=== PATIENT | female | born 2000 | race Caucasian/White ===

== ENCOUNTER 2020-05-19 12:57 | Inpatient (IN) ==
--- NOTE | 2020-05-19 13:35 | Emergency Department Note ---
History of Present Illness General Chief complaint: Mental Health Evaluation Stated complaint: MHID Time Seen by Provider: 05/19/20 13:08 Source: patient History of Present Illness Provider complaint: Overdose Onset (ago): hour(s) Location: abdomen Pain Consistency: + now resolved Maximum Pain Intensity: 6 Quality: + other (Took a handful of Zoloft) Exacerbated By: + other (Stress and chronic pain) Associated symptoms: + chest pain, + cough, + malaise and + nausea/vomiting; no fever/chills, no headaches and no shortness of breath This is a 19-year-old female brought in by EMS for evaluation for overdose. The patient states that she took a handful of her Zoloft 50 mg at 11 AM today. The patient states that she was very sad and tired of living with her chronic fibromyalgia pain. She states she sees a air brush operator and he states that it is just stress and anxiety. She was recently diagnosed with COVID-19 5 days ago and has developed chest pain over the past 2 days. She was seen here for chest pain 2 days ago and sent home and after evaluation. She describes the pain as a aching sharp pain on the left side of her chest. It is worse with cough. She denies feeling short of breath. She states that she is not suicidal at this point but she does not know what to do with her chronic fibromyalgia pain. She is on control pills. She denies any leg swelling or pain. She has had no abdominal pain or diarrhea but she did have some vomiting which is improved. She does have a mild cough and some sniffles which she had prior to being diagnosed with Covid 5 days ago. She denies alcohol or drug use. She does state that she has been in psychiatric facilities in the past. Her last admission was 3 years ago. She states she does not want to go to a psychiatric facility and wants to stay here. Home Medications Medication Instructions Recorded Confirmed Type benzonatate 200 mg PO Q6H PRN #20 cap 05/17/20 05/19/20 Rx ondansetron 4 mg PO Q6H PRN #20 tab 05/17/20 05/19/20 Rx dextroamphetamine-amphetamine 5 mg PO QAM 05/19/20 05/19/20 History [Adderall] norethindrone-e.estradiol-iron 1 tab PO QAM 05/19/20 05/19/20 History [June[birth year] ([birth year])] sertraline [Zoloft] 50 mg PO ONCE 05/19/20 05/19/20 History Allergies Allergy/AdvReac Type Severity Reaction Status Date / Time escitalopram [From Lexapro] AdvReac Unknown "Turn Pale Unverified 05/19/20 16:31 Green, Can't Concentrate, Can't Remember." Past Med/Surg History Medical History Fibromyalgia Insomnia Surgical History No history of previous surgery Social History Smoking Status: Never smoker Preferred Language: Palestinian current occupational status: student Feels Safe at Home: Yes Review of Systems See HPI for pertinent positives & negatives. and A total of 10 systems reviewed and were otherwise negative Physical Exam Vital Signs Vital Signs - 24 hr 05/19/20 13:23 05/19/20 15:00 05/19/20 15:01 Temperature 36.6 C Temperature Source Oral Pulse Rate 77 71 77 Pulse Rate from SpO2 Sensor 74 77 Respiratory Rate 17 18 16 Blood Pressure 123/69 127/81 Blood Pressure Mean 87 96 Pulse Oximetry 99 100 100 Oxygen Delivery Method Room Air Room Air Room Air Sepsis Recent Fever Within 48 Hours No Sepsis New/Unexplained Change in Mental Status N/A Sepsis Action Taken by Nursing No Action Required 05/19/20 15:30 05/19/20 15:31 05/19/20 16:00 Temperature Temperature Source Pulse Rate 71 71 72 Pulse Rate from SpO2 Sensor 71 72 72 Respiratory Rate 18 15 20 Blood Pressure 118/74 129/85 Blood Pressure Mean 88 99 Pulse Oximetry 98 100 100 Oxygen Delivery Method Room Air Room Air Room Air Sepsis Recent Fever Within 48 Hours Sepsis New/Unexplained Change in Mental Status Sepsis Action Taken by Nursing 05/19/20 16:01 05/19/20 16:30 05/19/20 16:31 Temperature Temperature Source Pulse Rate 75 89 86 Pulse Rate from SpO2 Sensor 76 92 H 85 Respiratory Rate 19 20 21 Blood Pressure 127/82 Blood Pressure Mean 97 Pulse Oximetry 100 99 99 Oxygen Delivery Method Room Air Room Air Room Air Sepsis Recent Fever Within 48 Hours Sepsis New/Unexplained Change in Mental Status Sepsis Action Taken by Nursing Constitutional: Vital signs reviewed. Eyes: Pupils are equal round reactive to light. Conjunctiva are noninjected. ENT: Pharynx is clear without erythema or exudate. Mucous membranes are moist. Neck supple without meningeal signs. Respiratory: Clear to auscultation bilaterally. Breath sounds are equal bilaterally. Cardiovascular: Regular rate and rhythm. No rubs or gallops. GI: Soft, nondistended and nontender. Bowel sounds are present. Musculoskeletal: No peripheral edema. No lower extremity tenderness. Integumentary: No cyanosis. or jaundice. Neurological: The patient is awake and alert. No focal deficits. Psychiatric: Depressed affect. Tearful and anxious. Course Administered Medications Discontinued Medications Acetaminophen (Acetaminophen 325 Mg Tab) 650 mg PO NOW STA Stop: 05/19/20 15:34 Last Admin: 05/19/20 16:02 Dose: 650 mg Documented by: [id number] Ondansetron HCl (Ondansetron Inj 2 Mg/Ml 2 Ml Vial) 4 mg IV NOW STA Stop: 05/19/20 15:51 Last Admin: 05/19/20 16:02 Dose: 4 mg Documented by: [id number] Medical Decision Making Differential Diagnosis Suicide attempt, drug overdose, mood disorder, pneumonia, COVID-19 Medical Records Attestation: I reviewed the patient's medical records. I did perform a limited focused review of portions of the patient's old chart on the electronic medical record. The patient was seen here 2 days ago for chest pain. She had a work-up including a positive D-dimer which led to a CT angiogram of the chest which showed no evidence of pulmonary embolism. Home Medications Current Medication List: was personally reviewed by me Laboratory Data Attestation: I reviewed the patient's lab results. Result diagrams: 05/19/20 13:10 05/19/20 13:10 Lab Results 05/19/20 05/19/20 05/19/20 Range/Units 13:10 13:10 13:10 WBC 5.51 (4.8-10.8) K/uL RBC 4.75 (4.2-5.4) M/uL Hgb 14.3 (12.0-16.0) g/dL Hct 41.6 (37-47) % MCV 87.6 (80-100) fL MCH 30.1 (25-34) pg MCHC 34.4 (32-36) g/dL RDW Std Deviation 41.9 (36.4-46.3) fL RDW Coeff of Charli 13.1 (11.5-14.5) % Plt Count 212 (130-400) K/uL MPV 10.5 H (7.4-10.4) fL Immature Gran % (Auto) 0.2 % Neut % (Auto) 65.3 % Lymph % (Auto) 28.9 % [place] % (Auto) 4.7 % Eos % (Auto) 0.7 % Baso % (Auto) 0.2 % Neut # (Auto) 3.60 (1.4-6.5) K/uL Lymph # (Auto) 1.59 (1.2-3.4) K/uL [place] # (Auto) 0.26 (0.11-0.59) K/uL Eos # (Auto) 0.04 (0-0.5) K/uL Baso # (Auto) 0.01 (0-0.2) K/uL Immature Gran # (Auto) 0.01 (0.00-0.02) K/uL Sodium 143 (136-145) mmol/L Potassium 3.5 (3.5-5.1) mmol/L Chloride 111 H (98-107) mmol/L Carbon Dioxide 25 (21-32) mmol/L Anion Gap 7.0 (3-11) BUN 7 (7-18) mg/dl Creatinine 0.83 (0.6-1.2) mg/dl Est Cr Clr Drug Dosing 84.8 ml/min Est GFR ( Amer) 117.7 Est GFR (Non-Af Amer) 101.5 BUN/Creatinine Ratio 8.8 L (10-20) Glucose 78 (70-99) mg/dl Calcium 9.0 (8.5-10.1) mg/dl Total Bilirubin 0.7 (0.2-1) mg/dl AST 19 (15-37) U/L ALT 22 (12-78) U/L Alkaline Phosphatase 69 (45-117) U/L Troponin I < 0.015 (0-0.045) ng/ml C-Reactive Protein < 0.29 (0-0.29) mg/dl Total Protein 7.8 (6.4-8.2) gm/dl Albumin 4.1 (3.4-5.0) gm/dl Globulin 3.7 (2.5-4.0) gm/dl Albumin/Globulin Ratio 1.1 (0.9-2) TSH 1.340 (0.300-4.500) uIu/ml Urine Color Urine Appearance (Clear) Urine pH (4.5-7.5) Ur Specific [place] (1.000-1.030) Urine Protein (Negative) Urine Glucose (UA) (Negative) Urine Ketones (Negative) Urine Blood (Negative) Urine Nitrite (Negative) Urine Bilirubin (Negative) Urine Urobilinogen (Negative) Ur Leukocyte Esterase (Negative) Urine WBC (Auto) (0-5) /hpf Urine RBC (Auto) (0-4) /hpf U Hyaline Cast (Auto) (0-5) /lpf U Epithel Cells (Auto) (0-5) /lpf Urine Bacteria (Auto) (Negative) Salicylates < 1.7 L (2.8-20) mg/dl Urine Opiates Screen (Neg) Ur Methadone, Qual (Neg) Acetaminophen < 2 L (10-30) ug/ml Urine Barbiturates (Neg) Ur Phencyclidine (PCP) (Neg) U Amphetamin/Meth Scrn (Neg) MDMA (Ecstasy) Screen (Neg) U Benzodiazepines Scrn (Neg) Ur Cocaine Metabolite (Neg) U Marijuana (THC) Screen (Neg) Ethyl Alcohol mg/dL (0-3) mg/dl 05/19/20 05/19/20 05/19/20 Range/Units 13:26 13:32 13:32 WBC (4.8-10.8) K/uL RBC (4.2-5.4) M/uL Hgb (12.0-16.0) g/dL Hct (37-47) % MCV (80-100) fL MCH (25-34) pg MCHC (32-36) g/dL RDW Std Deviation (36.4-46.3) fL RDW Coeff of Charli (11.5-14.5) % Plt Count (130-400) K/uL MPV (7.4-10.4) fL Immature Gran % (Auto) % Neut % (Auto) % Lymph % (Auto) % [place] % (Auto) % Eos % (Auto) % Baso % (Auto) % Neut # (Auto) (1.4-6.5) K/uL Lymph # (Auto) (1.2-3.4) K/uL [place] # (Auto) (0.11-0.59) K/uL Eos # (Auto) (0-0.5) K/uL Baso # (Auto) (0-0.2) K/uL Immature Gran # (Auto) (0.00-0.02) K/uL Sodium (136-145) mmol/L Potassium (3.5-5.1) mmol/L Chloride (98-107) mmol/L Carbon Dioxide (21-32) mmol/L Anion Gap (3-11) BUN (7-18) mg/dl Creatinine (0.6-1.2) mg/dl Est Cr Clr Drug Dosing ml/min Est GFR ( Amer) Est GFR (Non-Af Amer) BUN/Creatinine Ratio (10-20) Glucose (70-99) mg/dl Calcium (8.5-10.1) mg/dl Total Bilirubin (0.2-1) mg/dl AST (15-37) U/L ALT (12-78) U/L Alkaline Phosphatase (45-117) U/L Troponin I (0-0.045) ng/ml C-Reactive Protein (0-0.29) mg/dl Total Protein (6.4-8.2) gm/dl Albumin (3.4-5.0) gm/dl Globulin (2.5-4.0) gm/dl Albumin/Globulin Ratio (0.9-2) TSH (0.300-4.500) uIu/ml Urine Color Yellow Urine Appearance Clear (Clear) Urine pH 7.0 (4.5-7.5) Ur Specific [place] 1.020 (1.000-1.030) Urine Protein Negative (Negative) Urine Glucose (UA) Negative (Negative) Urine Ketones Negative (Negative) Urine Blood Negative (Negative) Urine Nitrite Negative (Negative) Urine Bilirubin Negative (Negative) Urine Urobilinogen Negative (Negative) Ur Leukocyte Esterase 1+ H (Negative) Urine WBC (Auto) 1-5 (0-5) /hpf Urine RBC (Auto) 0-4 (0-4) /hpf U Hyaline Cast (Auto) 1-5 (0-5) /lpf U Epithel Cells (Auto) >30 H (0-5) /lpf Urine Bacteria (Auto) Negative (Negative) Salicylates (2.8-20) mg/dl Urine Opiates Screen Neg (Neg) Ur Methadone, Qual Neg (Neg) Acetaminophen (10-30) ug/ml Urine Barbiturates Neg (Neg) Ur Phencyclidine (PCP) Neg (Neg) U Amphetamin/Meth Scrn Neg (Neg) MDMA (Ecstasy) Screen Pos H (Neg) U Benzodiazepines Scrn Neg (Neg) Ur Cocaine Metabolite Neg (Neg) U Marijuana (THC) Screen Neg (Neg) Ethyl Alcohol mg/dL < 3.0 (0-3) mg/dl Imaging Data Radiologist's Impression: XR chest 1V portable HISTORY: 19 years-old Female covid eval for pna acute shortness of breath COMPARISON: CTA chest and chest radiograph 05/17/2020 TECHNIQUE: Portable AP view of the chest FINDINGS: Cardiomediastinal and hilar silhouettes are within normal limits. There is no pneumothorax, pleural effusion, airspace consolidation or overt pulmonary edema. Bones of the chest appear normal. IMPRESSION: Normal exam. ACT 112: Negative or not required by law. The above report was generated using voice recognition software. It may contain grammatical, syntax or spelling errors. Electronically signed by: Ulysses Chung M.D. 05/19/2020 2:00 PM Dictated: 05/19/20 1357 Transcribed: 05/19/20 1357 ECG Data Attestation: I personally reviewed and interpreted this ECG as follows: Indication: + chest pain and + toxicologic Rate (beats per minute): 67 Rhythm: + normal sinus ECG [place]: + Normal ECG ST segments: no ST elevation ECG Findings: no PVCs MDM Narrative I did evaluate the patient as noted above. She is presenting status post overdose on a handful of Zoloft today. She is depressed and in chronic pain due to fibromyalgia. She recently was diagnosed with COVID-19 and developed left- sided chest pain for the past 2 days. She was evaluated for this already and had a negative CT angiogram of the chest. Suicide precautions were observed. She was placed in respiratory isolation. IV access was established. I did place an order for continuous cardiac monitoring. The monitor showed normal sinus rhythm at a rate of 80 bpm. I did order and personally review the patient's 12-lead EKG as described above. There is no evidence of dysrhythmia, QT prolongation or widening of the QRS. No signs of acute ischemia are noted. There is no evidence of pericarditis. I did order and personally reviewed the images of the patient's chest x-ray as described above. She has no evidence of pneumonia. I did order a urine analysis. She does not appear to have a urinary tract infection. I did order and review the patient's blood work as noted in the electronic medical record. CBC and CMP are unremarkable. Troponin and C- reactive protein are negative. TSH is within normal limits. The patient developed nausea and a headache while in the emergency department. She was given Tylenol p.o. for headache and Zofran 4 mg IV for her nausea. The patient is COVID-19 positive and so she cannot go to a psychiatric facility. She will be admitted to the medical service for her overdose as well as psychiatric consultation. I did discuss the case with the hospitalist and rehabilitation case coordinator. Impression & Plan Drug overdose, intentional, Fibromyalgia, COVID-19 virus infection, Left-sided chest pain, Mood disorder Discharge Plan Visit Data Chief Complaint: Mental Health Evaluation Stated Complaint: MHID ED Provider: Abimael Rosenberg Discharge Problem: Drug overdose, intentional, Fibromyalgia, COVID-19 virus infection, Left-sided chest pain, Mood disorder Patient Disposition: Being Evaluated by Hospitalist Forms Stand Alone Forms: [facility], Suicide Prevention Resources Prescriptions Prescriptions: No Action benzonatate 200 mg capsule 200 mg PO Q6H PRN (Reason: cough) Qty: 20 RF: 0 ondansetron 4 mg tablet,disintegrating 4 mg PO Q6H PRN (Reason: nausea and vomiting) Qty: 20 RF: 0 norethindrone-e.estradiol-iron [Junel FE 04/12 (28)] 1 mg-20 mcg (21)/75 mg (7) Tablet 1 tab PO QAM RF: 0 sertraline [Zoloft] 50 mg Tablet 50 mg PO ONCE RF: 0 dextroamphetamine-amphetamine [Adderall] 5 mg Tablet 5 mg PO QAM RF: 0 Referrals Referrals: PCP,NO [Primary Care Provider] -
[2020-05-19 13:39] LABS: Basophils # (auto) 0.01 K/uL (0-0.2); Basophils % (auto) 0.2 %; Eosinophils # (auto) 0.04 K/uL (0-0.5); Eosinophils % (auto) 0.7 %; Hematocrit (blood only) 41.6 % (37-47); Hemoglobin 14.3 g/dL (12.0-16.0); Immature Granulocytes # (auto) 0.01 K/uL (0.00-0.02); Immature Granulocytes % (auto) 0.2 %; Lymphocytes # (auto) 1.59 K/uL (1.2-3.4); Lymphocytes % (auto) 28.9 %; Mean Corpuscular Hemoglobin 30.1 pg (25-34); Mean Corpuscular Hgb Conc 34.4 g/dL (32-36); Mean Corpuscular Volume 87.6 fL (80-100); Mean Platelet Volume 10.5 fL (7.4-10.4); Monocytes # (auto) 0.26 K/uL (0.11-0.59); Monocytes % (auto) 4.7 %; Neutrophils % (auto) 65.3 %; Platelet Count 212 K/uL (130-400); RDW Coefficient of Variation 13.1 % (11.5-14.5); RDW Standard Deviation 41.9 fL (36.4-46.3); Red Blood Count 4.75 M/uL (4.2-5.4); White Blood Count 5.51 K/uL (4.8-10.8)
[2020-05-19 13:46] LABS: Alanine Aminotransferase 22 U/L (12-78); Albumin Level 4.1 gm/dl (3.4-5.0); Aspartate Aminotransferase 19 U/L (15-37); BUN Creatinine Ratio 8.8 (10-20); Blood Urea Nitrogen 7 mg/dl (7-18); Carbon Dioxide 25 mmol/L (21-32); Chloride 111 mmol/L (98-107); Creatinine Clr Calc Pharmacy 84.8 ml/min; Est GFR (African American) 117.7; Est GFR (Non-African American) 101.5; Glucose 78 mg/dl (70-99); Potassium 3.5 mmol/L (3.5-5.1); Sodium 143 mmol/L (136-145)
[2020-05-19 13:51] LABS: Appearance Urine Clear (Clear); Bacteria Urine Automated Negative (Negative); Bilirubin Urine Negative (Negative); Blood Urine Negative (Negative); Color Urine Yellow; Epithelial Cell Urine Auto >30 /lpf (0-5); Glucose Urine UA Negative (Negative); Ketones Urine Negative (Negative); Leukocyte Esterase Urine 1+ (Negative); Nitrite Urine Negative (Negative); Protein Urine Negative (Negative); RBC Urine Automated 0-4 /hpf (0-4); Urobilinogen Urine Negative (Negative)
[2020-05-19 13:56] LABS: Acetaminophen < 2 ug/ml (10-30); Albumin Globulin Ratio 1.1 (0.9-2); Alkaline Phosphatase 69 U/L (45-117); Bilirubin,Total 0.7 mg/dl (0.2-1); C Reactive Protein < 0.29 mg/dl (0-0.29); Globulin 3.7 gm/dl (2.5-4.0); Salicylate < 1.7 mg/dl (2.8-20); Total Protein 7.8 gm/dl (6.4-8.2); Troponin I < 0.015 ng/ml (0-0.045)
--- NOTE | 2020-05-19 14:01 | XRay Report ---
XR chest 1V portable HISTORY: 19 years-old Female covid eval for pna acute shortness of breath COMPARISON: CTA chest and chest radiograph 05/17/2020 TECHNIQUE: Portable AP view of the chest FINDINGS: Cardiomediastinal and hilar silhouettes are within normal limits. There is no pneumothorax, pleural e ffusion, airspace consolidation or overt pulmonary edema. Bones of the chest appear normal. IMPRESSION: Normal exam. ACT 112: Negative or not required by law. The above report was generated using voice recognition software. It may contain grammatical, syntax o r spelling errors. Electronically signed by: Ulysses Chung M.D. 05/19/2020 2:00 PM
--- NOTE | 2020-05-19 14:15 | Electrocardiogram Report ---
Test Reason : Blood Pressure : / mmHG Vent. Rate : 067 BPM Atrial Rate : 067 BPM P-R Int : 124 ms QRS Dur : 086 ms QT Int : 398 ms P-R-T Axes : 068 083 051 degrees QTc Int : 420 ms Normal sinus rhythm Normal ECG When compared with ECG of 17-MAY-2020 18:14, No significant change was found Confirmed by Fer Delacruz ([id number]) on 05/19/2020 2:14:44 PM Referred By: Confirmed By:Mustapha Delacruz
[2020-05-19 15:03] LABS: Amphetamines+Metham, Urine Neg (Neg); Barbiturates, Urine Neg (Neg); Benzodiazepine, Urine Neg (Neg); Cocaine, Urine Neg (Neg); MDMA (Ecstacy), Urine Pos (Neg); Methadone, Urine Neg (Neg); Opiate, Urine Neg (Neg); Phencyclidine, Urine Neg (Neg)
[2020-05-19] MEDS ORDERED: ACETAMINOPHEN 325 MG TAB PO STA (15:33)
--- NOTE | 2020-05-19 15:40 | History & Physical Report ---
Date of Service May 19, 2020 Assessment & Plan (1) Drug overdose, intentional: Suicide attempt in patient with uncontrolled fibromyalgia and took multiple pills of zoloft at once. Will admit to med surg with tele have psych followup with her. Will need inpatient psych, however given her COVID 19 diagnosis, she will need to be admitted under medical service. Willlnhold zoloft for now. She may benefit from cymbalta pregabalin combination. Will defer to psych when she can safely switch to cymbalta in AM. Ordered lyrica for evening. (2) Fibromyalgia: Pain is not controlled, she appears to have failed multiple single agent therapies. May benefit from combination therapy and outpatient exercise program. (3) COVID-19 virus infection: On room air. No need to remdesevir or dexamethasone. History of Present Illness Chief Complaint: Pain is too severe and I cannot handle it anymore. Primary Care Provider: NO PCP 19 yo female with history of fibromyalgia. Patient reports she was recently tested for COVID 19 on Friday and was positive. Patient reports having subjective fever and a cough and worsening pain. These symptoms have subsided however, however patient continues to have her fibromyalgia pain. She reports this is ongoing and has reached a point that she is unable to tolerate it. She reports this pain is mainly in her chest, back and abdomen. She was diagnosed with fibromyalgia last year but has been having pain since the 9th grade. She has been on multiple treatment options and she feels like nothing has worked. She reports having been on cymbalta in the past, with no improvement. She comes in after taking multiple pills of zoloft to end her life. Allergies Allergy/AdvReac Type Severity Reaction Status Date / Time escitalopram [From Lexapro] AdvReac Unknown "Turn Pale Unverified 05/19/20 16:31 Green, Can't Concentrate, Can't Remember." Home Medications Medication Instructions Recorded Confirmed Type benzonatate 200 mg PO Q6H PRN #20 cap 05/17/20 05/19/20 Rx ondansetron 4 mg PO Q6H PRN #20 tab 05/17/20 05/19/20 Rx dextroamphetamine-amphetamine 5 mg PO QAM 05/19/20 05/19/20 History [Adderall] norethindrone-e.estradiol-iron 1 tab PO QAM 05/19/20 05/19/20 History [[birth year])] sertraline [Zoloft] 50 mg PO ONCE 05/19/20 05/19/20 History Past Med/Surg History Medical History Fibromyalgia Insomnia Surgical History No history of previous surgery Family History Other No history of previous surgery No known health problems Social History Smoking Status: Never smoker Hx Alcohol Use: No Hx Substance Use: No Preferred Language: Turkish Communication Ability: Effective Dictaphone Typist Required: No Beliefs That Will Affect Care: None Current Living Situation: Alone Current Living Situation Comment: lives on campus current occupational status: student Other Information That Helps Us Care for You: No Feels Safe at Home: Yes Safety Concerns: Feels Safe At This Time Assistive Devices: None Review of Systems Constitutional: + fever and + fatigue Eyes: no diplopia Ear, Nose, Mouth, Throat: no ear pain and no ear trauma Respiratory: no change in sputum and no hemoptysis Cardiovascular: no chest pain and no chest pain with activity Gastrointestinal: + nausea Musculoskeletal: + back pain, + joint pain and + myalgia Integumentary: no rash Neurologic: no falls Psychiatric: + depression, + hopelessness and + suicidal ideation Physical Exam Constitutional: WD/WN, vitals as above Eyes: PERRL, conjunctivae normal, anicteric sclerae ENMT: external ear and nose normal, oropharynx normal Neck: trachea midline, no thyromegaly Respiratory: normal respiratory effort, lungs clear to auscultation Cardiovascular: RRR, no murmur, no edema Gastrointestinal (Abdomen): normal bowel sounds, soft, nontender, no hepatosplenomegaly Musculoskeletal: no cyanosis or clubbing, extremities motor strength 5/5 Skin: no rashes, warm and dry Neurologic: PERRL, EOMI, accommodation nl, no face palsy, no dysarthria Psychiatric: A+Ox3, euthymic affect Lymphatic: no cervical or axillary lymphadenopathy Results & Data Results & Data ([facility]) Vital Signs (Past 12 Hours) Vital Signs Temp Pulse Resp BP Pulse Ox 05/19/20 13:23 36.6 C 77 17 123/69 99 PG Care Time/CCT Total # of Minutes Spent Total Time Spent with Patient: Total time spent is greater than 50% in coordination of care (as documented) at patient's floor/unit and/or counseling patient: Coding Level of Care Code 84912 Initial Inpt Care Lvl 3 Diagnoses Drug overdose, intentional T50.902A Encounter type: initial encounter Fibromyalgia M79.7 COVID-19 virus infection U07.1 Time Spent (min) 555 (1) Drug overdose, intentional Encounter type: initial encounter Qualified Code(s): T50.902A - Poisoning by unspecified drugs, medicaments and biological substances, intentional self-harm, initial encounter
[2020-05-19] MEDS ORDERED: ONDANSETRON INJ 2 MG/ML 2 ML VIAL IV STA (15:50)
[2020-05-19] MEDS ORDERED: PROCHLORPERAZINE IV ONE (20:30)
[2020-05-19] MEDS ORDERED: PROCHLORPERAZINE 5 MG in SYRINGE 8 ML IV ONE (20:30)
[2020-05-19] MEDS: LACTATED RINGER'S 1,000 ML IV SCH (20:39)
[2020-05-19] MEDS ORDERED: PREGABALIN 50 MG CAP PO SCH (21:00)
[2020-05-20] MEDS ORDERED: MELATONIN 3 MG TAB PO PRN (01:30)
[2020-05-20] MEDS ORDERED: MELATONIN 3 MG TAB PO ONE (01:39)
[2020-05-20] MEDS: LACTATED RINGER'S 1,000 ML IV SCH ×3 (04:56→21:43)
[2020-05-20 09:10] LABS: Magnesium 2.1 mg/dl (1.8-2.4)
[2020-05-20] MEDS ORDERED: LOPERAMIDE HCL 2 MG CAP PO PRN (09:26)
--- NOTE | 2020-05-20 09:31 | Psychiatric Consultation ---
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 She states the overdose was impulsive in the setting of chronic pain. (1) Drug overdose, intentional: 05/20 - Patient reports overdose was impulsive and she immediately regretted it. She is denying SI currently. -We will provide her with a patient workbook and assist her to work on a safety plan. -Recommend family meeting w/ social work - she is refusing involvement of her family, but says she would be willing for a meeting with her friends. Encounter type: initial encounter Qualified Code(s): T50.902A - Poisoning by unspecified drugs, medicaments and biological substances, intentional self-harm, initial encounter (2) Depression: 05/20 -Long history of recurrent depression. Patient had been started on sertraline 50 mg a couple of months ago and reports it has been helpful. Recommend resuming it once is appropriate from a medical standpoint, as she is still having symptoms of serotonin syndrome as a result of her overdose. -[facility] director of social services can assist with arranging a family meeting and referring her for outpatient treatment. She indicates she would prefer to have her PCP to continue managing her psychiatric conditions, but it may be beneficial for her to see a specialist. We will try to contact her PCP, Dr. Rosi Valdovinos at [facility] to determine if she will continue to manage the patient or would like her to be referred to psychiatry. -Patient will benefit from psychotherapy and is requesting a referral to [facility], as she lives on campus and does not have a car. Risk Factors Assessment Male: No : Yes Do You Have Access To A Gun?: No Health Problems: Yes Mental Health Diagnoses: Yes Substance Use Disorders: No Previous Attempt: Yes Previous Psychiatric Hospitalization: Yes Hopelessness: No Protective Factors Assessment : No Responsible for Young Children: No Employed: No Stable Relationships: Yes Psych History Chief Complaint "I couldn't handle it". History of Present Illness Patient assessed by phone due to COVID+ status (diagnosed Friday). She reports a history of depression and JANNIE since teen years, states she was overwhelmed as she has fibromyalgia and "doesn't really get any treatment," has been struggling with pain. She sees a rolling up machine operator in [place] where she is from. States she woke up mid morning and was in a lot of pain, so "took the rest of my bottle of Zoloft, like half a bottle." She isn't sure what she thought would happen as a result of the overdose, but immediately worried it would harm her, so called her boyfriend and told him what she'd done. He called 911 and she was brought to the hospital. She says she does not want to and regrets the overdose, "I'll never do anything like that again." She has a history of suicidal thoughts at age 15, tried to hang herself with a dog leash, and was hospitalized at [facility] and then [facility]. Mood has been "exhausted" since she has been sick with COVID, and her antidepressant was changed to sertraline from a medication she can't recall a couple of months ago. She does think sertraline was working. She would like to continue to see her PCP rather than a psychiatrist, and would like to get therapy at [facility]. Past Psychiatric History Current Psychiatric Diagnosis: MDD and JANNIE Outpatient Services: No psychiatrist currently, PCP prescribes (Dr. Rosi Valdovinos in [place]). No therapist currently. Previous Psych Admissions: 2 previous hospitalizations at [facility] and [facility] age 15 Do You Have Access To A Gun?: No History of Previous Suicide Attempt: Yes Describe Attempts in the Past: wrapped dog leash around her neck Past Medication Trials: trazodone Zoloft - has taken before, and was resumed about 2 months ago oral contraceptives for mood unknown antidepressants duloxetine - for pain and mood mirtazapine escitalopram - ineffective Allergies Allergy/AdvReac Type Severity Reaction Status Date / Time escitalopram [From Lexapro] AdvReac Unknown "Turn Pale Unverified 05/19/20 16:31 Green, Can't Concentrate, Can't Remember." Home Medications Medication Instructions Recorded Confirmed Type benzonatate 200 mg PO Q6H PRN #20 cap 05/17/20 05/19/20 Rx ondansetron 4 mg PO Q6H PRN #20 tab 05/17/20 05/19/20 Rx dextroamphetamine-amphetamine 5 mg PO QAM 05/19/20 05/19/20 History [Adderall] norethindrone-e.estradiol-iron 1 tab PO QAM 05/19/20 05/19/20 History [Junel [birth year] ([birth year])] sertraline [Zoloft] 50 mg PO ONCE 05/19/20 05/19/20 History Family History Grandmother with depression and anxiety, mother with untreated depression and alcoholism. Substance Abuse History Denies Personal History Living Arrangements: Dorm (single room) Childhood: Grew up "in a lot of different places" in [place] [place]. Lives with father when not in school. Has an older sibling and a twin. No contact with mother Highest Grade Completed: High School Graduate Employment Status: Student ([employer] at [employer], transferred from [employer] to [employer] this fall) Marital Status: Single Beliefs That Will Affect Care: None Patient History Medical History Fibromyalgia Insomnia Surgical History No history of previous surgery Family History Other No history of previous surgery No known health problems Social History Smoking Status: Never smoker Hx Alcohol Use: No Hx Substance Use: No Preferred Language: Burkinan Communication Ability: Effective Moth Proofer Required: No Beliefs That Will Affect Care: None Current Living Situation: Alone Current Living Situation Comment: lives on campus current occupational status: student Other Information That Helps Us Care for You: No Feels Safe at Home: Yes Safety Concerns: Feels Safe At This Time Assistive Devices: None Physical Exam Psychiatric: Orientation: alert and cooperative Unable to assess visual due to phone interview "better today" Thought Process: goal directed thought process and linear/logical thought process Thought Content: reality based without delusions Suicidal Thoughts: denies suicidal thoughts Homicidal Thoughts: denies homicidal thoughts Hallucinations: no auditory hallucinations and no visual hallucinations Cognition: recent memory grossly intact Estimated Intelligence: consistent with education level Insight: + fair insight Judgement: + fair judgement Vital Signs (Past 24 Hours): Last Vital Signs Temp 37.0 C 05/20/20 07:26 Pulse 86 05/20/20 07:26 Resp 18 05/20/20 07:26 BP 132/76 05/20/20 09:04 Pulse Ox 96 05/20/20 07:26 Review of Systems All systems reviewed & are unremarkable except as noted in HPI & below shaking, pain, diarrhea, heaviness in head Results & Data (PSY) Medications Administered Lactated Ringer's (Lr) 1,000 mls @ 125 mls/hr IV .Q8H GAYATHRI Stop: 06/18/20 20:14 Last Admin: 05/20/20 04:56 Dose: 125 mls/hr Documented by: [id number] Infusion: 05/20/20 04:39 Dose: 125 mls/hr Documented by: [id number] Admin: 05/19/20 20:39 Dose: 125 mls/hr Documented by: [id number] Pregabalin (Pregabalin 50 Mg Cap) 50 mg PO HS GAYATHRI Stop: 06/18/20 20:59 Last Admin: 05/19/20 21:11 Dose: 50 mg Documented by: [id number] Coding Level of Care Code 85344 [facility] Intl Hosp Care Lvl 3 Diagnoses Drug overdose, intentional T50.902A Encounter type: initial encounter Depression F32.9
[2020-05-20] MEDS: ADVANCED PROBIOTIC 1250 MG CAPSULE PO SCH (10:25)
[2020-05-20] MEDS: ONDANSETRON INJ 2 MG/ML 2 ML VIAL IV PRN ×2 (10:25→19:42)
[2020-05-20] MEDS: KETOROLAC TROMETHAMINE 15 MG/ML VIAL IV PRN ×2 (17:46→23:26)
--- NOTE | 2020-05-20 20:20 | Hospitalist Progress Note ---
Date of Service May 20, 2020 Assessment & Plan (1) Intentional SSRI (selective serotonin reuptake inhibitor) overdose: Leading to serotonin excess - as evidenced by tachycardia, tremors, dilated pupils, diarrhea, etc. Mild rhabdomyolysis - difficult to know if due to COVID-19 or serotonin excess. Regardless - copious IV fluids, supportive care, symptomatic care (loperamide, zofran, etc). Zoloft on hold of course. (2) Drug overdose, intentional: zoloft - see above. uncertain amount - 10-15 tabs or more based on her recollection. (3) Fibromyalgia: established diagnosis. TSH, B12, vitamin D wnl. Consider cymbalta, gabapentin, or lyrica for long-term relief of symptoms. Should see rheum locally. (4) COVID-19 virus infection: Diarrhea, nausea, emesis, cough, recent URI symptoms - consistent with COVID-19 infection. No evidence of lower respiratory tract disease. Thus, defer on convalescent plasma, remdesevir and dexamethasone. Mild rhabdo may be from COVID or SSRI overdose. Cont airborne isolation. (5) Rhabdomyolysis due to COVID-19: Copious hydration. Repeat BMP and CPK in am. (6) Depression: Defer management to psychiatry. No suicidal thoughts today. Appreciate psych consult. (7) Underweight: BMI 17 (8) DVT prophylaxis: although a healthy 19yo would typically be at low risk of VTE, she takes OCPs and has COVID thus, start heparin 5000 BID Admission and Anticipated Discharge Date Admission Date: May 19, 2020 Subjective overnight - tele with sinus tach. no dysrhythmia. patient reports poor appetite, but is starting to drink fluids. having b/l throbbing headache - behind both eyes. no personal h/o migraines, but sister has them. also with dizziness/blurry vision and mild tremors. feels a bit unsteady on feet. having nausea, no further emesis however. no abd pain. mild cough - dry, nonproductive; no dyspnea on exertion. denies loss of taste/smell. dx with Fibromyalgia by executive chairman. took ?cymbalta vs lyrica in past but no longer taking such. long-standing depression - taking zoloft regularly. got sick with COVID symptoms last Friday or Friday. boyfriend with lab-confirmed COVID. Review of Systems Constitutional: + fatigue, + weakness and + anorexia; no fever Ear, Nose, Mouth, Throat: no nasal congestion and no sore throat Respiratory: + cough; no dyspnea Cardiovascular: no chest pain Gastrointestinal: + diarrhea/loose stools; no abdominal pain, no nausea and no vomiting Musculoskeletal: + myalgia and + body aches Integumentary: no rash Psychiatric: + anxiety; no suicidal ideation and no homicidal ideation Physical Exam Constitutional: + acute distress (tremulous), + ill appearing and + thin; no altered mental status Eyes: EOM intact bilaterally and + dilated pupils; no nystagmus ENMT: external ear and nose normal, oropharynx normal Respiratory: normal respiratory effort, lungs clear to auscultation Cardiovascular: Rate/Rhythm: regular rhythm and + tachycardic Heart Sounds: normal S1 and normal S2; no murmur Vessels: posterior tibial pulses present and dorsalis pedis pulses present; no JVD Extremities: no edema Gastrointestinal (Abdomen): normal bowel sounds, soft, nontender, no hepatosplenomegaly Skin: no rashes, warm and dry Neurologic: Motor/Sensory: + tremor Psychiatric: Orientation: alert and oriented x 3 Affect: + anxious affect Results & Data Results & Data ([facility]) Vital Signs (Past 12 Hours) Vital Signs Temp Pulse Pulse Resp BP Pulse Ox 05/20/20 19:12 73 05/20/20 15:13 37.2 C 77 16 121/64 96 05/20/20 09:04 132/76 Laboratory Results Laboratory Results - last 24 hr 05/20/20 05/20/20 05/20/20 08:10 08:10 08:10 Magnesium 2.1 Total Creatine Kinase 1599 H Vitamin B12 693 25-OH Vitamin D Total 34.7 POC Ur Test 05/20/20 08:32 Magnesium Total Creatine Kinase Vitamin B12 25-OH Vitamin D Total POC Ur Test Pending PG Care Time/CCT Total # of Minutes Spent Total Time Spent with Patient: Total time spent is greater than 50% in coordination of care (as documented) at patient's floor/unit and/or counseling patient: Coding Level of Care Code 98757 Subseq Hosp Care Lvl 3 Diagnoses Intentional SSRI (selective serotonin reuptake inhibitor) overdose T43.222D Encounter type: subsequent encounter Drug overdose, intentional T50.902A Encounter type: initial encounter Fibromyalgia M79.7 COVID-19 virus infection U07.1 Rhabdomyolysis due to COVID-19 U07.1; M62.82 Depression F32.9 Underweight R63.6 DVT prophylaxis Z29.9 (1) Drug overdose, intentional Encounter type: initial encounter Qualified Code(s): T50.902A - Poisoning by unspecified drugs, medicaments and biological substances, intentional self-harm, initial encounter (2) Intentional SSRI (selective serotonin reuptake inhibitor) overdose Encounter type: subsequent encounter Qualified Code(s): T43.222D - Poisoning by selective serotonin reuptake inhibitors, intentional self-harm, subsequent encounter
[2020-05-20] MEDS: FAMOTIDINE 20 MG in SYRINGE 3 ML IV SCH (22:23)
[2020-05-20] MEDS: HEPARIN SOD 5,000 UNIT/0.5 ML VIAL SQ SCH (22:23)
[2020-05-21] MEDS: LACTATED RINGER'S 1,000 ML IV SCH ×3 (04:06→20:08)
[2020-05-21] MEDS: KETOROLAC TROMETHAMINE 15 MG/ML VIAL IV PRN (06:10)
[2020-05-21 07:20] LABS: BUN Creatinine Ratio 8.4 (10-20); Calcium 8.8 mg/dl (8.5-10.1); Creatinine Clr Calc Pharmacy 99.2 ml/min; Est GFR (African American) 145.2; Est GFR (Non-African American) 125.3; Potassium 3.7 mmol/L (3.5-5.1)
--- NOTE | 2020-05-21 07:52 | Psychiatric Progress Note ---
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 She states the overdose was impulsive in the setting of chronic pain. (1) Drug overdose, intentional: 05/20 - Patient reports overdose was impulsive and she immediately regretted it. She is denying SI currently. -We will provide her with a patient workbook and assist her to work on a safety plan. -Recommend family meeting w/ social work - she is refusing involvement of her family, but says she would be willing for a meeting with her friends. 05/21 -family meeting to be held with the director social service and patient's boyfriend today. Although her father is now aware that she is in the hospital, she still does not want to involve him in treatment. -[facility] staff will assist her in developing a safety plan. (2) Depression: 05/20 -Long history of recurrent depression. Patient had been started on sertraline 50 mg a couple of months ago and reports it has been helpful. Recommend resuming it once is appropriate from a medical standpoint, as she is still having symptoms of serotonin syndrome as a result of her overdose. -[facility] director social service can assist with arranging a family meeting and referring her for outpatient treatment. She indicates she would prefer to have her PCP to continue managing her psychiatric conditions, but it may be beneficial for her to see a specialist. We will try to contact her PCP, Dr. Rosi Valdovinos at [facility] to determine if she will continue to manage the patient or would like her to be referred to psychiatry. -Patient will benefit from psychotherapy and is requesting a referral to [facility], as she lives [place] campus and does not have a car. 05/21 -patient reports she takes trazodone at home, but recommend holding it and sertraline until serotonin syndrome has resolved. Could use hydroxyzine 50 mg at bedtime as needed for insomnia in the meantime, as melatonin was reportedly unhelpful last night. -Social work to refer for outpatient mental health treatment tomorrow. Risk Factors Assessment Male: No : Yes Do You Have Access To A Gun?: No Health Problems: Yes Mental Health Diagnoses: Yes Substance Use Disorders: No Previous Attempt: Yes Previous Psychiatric Hospitalization: Yes Hopelessness: No Protective Factors Assessment : No Responsible for Young Children: No Employed: No Stable Relationships: Yes Interval History Chief Complaint "Very tired, still haven't gotten to sleep". Review of Systems Notes see above Subjective Subjective Patient was seen & assessed and interval progress reviewed with nursing and social work. [facility] staff met with her, provided her with a patient workbook, she has a family meeting scheduled with the director social service and her boyfriend today. She was upset that the [place] contacted her parents about her hospitalizat ion, but said she spoke with them and felt better afterwards. She continues to report pain, and was focused on discharge. I spoke with her via phone due to COVID+ status. She reports feeling tired due to poor sleep, impaired due to discomfort of the IV and not having trazodone, which she takes at home. Mood remains suboptimal but denies SI. Reports many physical issues including weakness, dizziness, and shakiness. She says she has talked to her father and was upset that the [place] notified him, says "it went okay, but I still wasn't able to explain everything." She thinks it would be helpful to talk with the director social service and her boyfriend about her warning signs and "coping techniques when I'm alone." Physical Exam Psychiatric Orientation: alert and cooperative Unable to assess visual portions of the exam due to phone interview Mood: + depressed mood and + anxious mood Tired Thought Process: goal directed thought process Thought Content: reality based without delusions Suicidal Thoughts: denies suicidal thoughts Homicidal Thoughts: denies homicidal thoughts Cognition: recent memory grossly intact, attention grossly intact and language grossly intact Estimated Intelligence: average estimated intelligence Insight: + fair insight Judgement: + fair judgement Vital Signs (Past 24 Hours) Last Vital Signs Temp 36.8 C 05/21/20 03:26 Pulse 63 05/21/20 03:26 Resp 18 05/21/20 03:26 BP 145/86 H 05/21/20 03:26 Pulse Ox 98 05/21/20 03:26 Results & Data ([facility]) Laboratory Results Laboratory Results - last 24 hr 05/20/20 05/20/20 05/20/20 08:10 08:10 08:10 Sodium Potassium Chloride Carbon Dioxide Anion Gap BUN Creatinine Est Cr Clr Drug Dosing Est GFR ( Amer) Est GFR (Non-Af Amer) BUN/Creatinine Ratio Glucose Calcium Magnesium 2.1 Total Creatine Kinase 1599 H Vitamin B12 693 25-OH Vitamin D Total 34.7 POC Ur Test 05/20/20 05/21/20 08:32 06:38 Sodium 140 Potassium 3.7 Chloride 108 H Carbon Dioxide 26 Anion Gap 6.0 BUN 6 L Creatinine 0.69 Est Cr Clr Drug Dosing 99.2 Est GFR ( Amer) 145.2 Est GFR (Non-Af Amer) 125.3 BUN/Creatinine Ratio 8.4 L Glucose 75 Calcium 8.8 Magnesium Total Creatine Kinase 3761 H Vitamin B12 25-OH Vitamin D Total POC Ur Test Pending Current Inpatient Medications Current Inpatient Medications: Current Inpatient Medications Heparin Sodium (Porcine) (Heparin Sod 5,000 Unit/0.5 Ml Vial) 5,000 units SQ Q12 GAYATHRI Stop: 06/19/20 21:29 Last Admin: 05/20/20 22:23 Dose: 5,000 units Documented by: Lactated Ringer's (Lr) 1,000 mls @ 125 mls/hr IV .Q8H GAYATHRI Stop: 06/18/20 20:14 Last Admin: 05/21/20 04:06 Dose: 125 mls/hr Documented by: Famotidine 20 mg/ Syringe 5 mls @ 2.5 mls/min IV BID [facility] Stop: 06/19/20 21:29 Last Admin: 05/20/20 22:23 Dose: 2.5 mls/min Documented by: Ketorolac Tromethamine (Ketorolac Tromethamine 15 Mg/Ml Vial) 15 mg IV Q6H PRN; Protocol PRN Reason: Pain Stop: 05/25/20 09:28 Last Admin: 05/21/20 06:10 Dose: 15 mg Documented by: Lactobacillus Acidoph/Casei/Rhamnos (Advanced Probiotic 1250 Mg Capsule) 2 cap PO DAILY GAYATHRI Stop: 06/19/20 09:29 Last Admin: 05/20/20 10:25 Dose: 2 cap Documented by: Loperamide HCl (Loperamide Hcl 2 Mg Cap) 2 mg PO Q3H PRN PRN Reason: diarrhea Stop: 06/19/20 09:25 Last Admin: 05/20/20 10:25 Dose: 2 mg Documented by: Melatonin (Melatonin 3 Mg Tab) 3 mg PO HS PRN PRN Reason: Sleep Stop: 06/19/20 01:29 Last Admin: 05/20/20 23:27 Dose: 3 mg Documented by: Ondansetron HCl (Ondansetron Inj 2 Mg/Ml 2 Ml Vial) 4 mg IV Q6H PRN PRN Reason: Nausea And Vomiting Stop: 06/19/20 09:25 Last Admin: 05/20/20 19:42 Dose: 4 mg Documented by: Pregabalin (Pregabalin 50 Mg Cap) 50 mg PO HS GAYATHRI Stop: 06/18/20 20:59 Last Admin: 05/19/20 21:11 Dose: 50 mg Documented by: Post Discharge Appointments Primary Care Physician Name Of Family Doctor: [facility] (1) Drug overdose, intentional Encounter type: initial encounter Qualified Code(s): T50.902A - Poisoning by unspecified drugs, medicaments and biological substances, intentional self-harm, initial encounter
[2020-05-21] MEDS: FAMOTIDINE 20 MG in SYRINGE 3 ML IV SCH ×2 (09:04→20:08)
[2020-05-21] MEDS: HEPARIN SOD 5,000 UNIT/0.5 ML VIAL SQ SCH ×2 (09:04→20:09)
[2020-05-21] MEDS: ADVANCED PROBIOTIC 1250 MG CAPSULE PO SCH (09:04)
[2020-05-21] MEDS: ONDANSETRON INJ 2 MG/ML 2 ML VIAL IV PRN (11:23)
[2020-05-21 11:49] LABS: C Reactive Protein 0.29 mg/dl (0-0.29); Troponin I < 0.015 ng/ml (0-0.045)
--- NOTE | 2020-05-21 16:51 | XRay Report ---
XR chest 1V portable CLINICAL HISTORY: COVID-19, chest pain COMPARISON STUDY: Chest CT May 17, 2020. Chest radiograph May 19, 2020. FINDINGS: Lung volumes are normal. Lungs are clear. There is no pneumothorax or pleural effusion. Car diac size is normal. Mediastinal contours are normal. There is no evidence for pulmonary edema. IMPRESSION: No acute cardiopulmonary findings. ACT 112: Negative or not required by law. Electronically signed by: Ayaan Fuentes M.D. 05/21/2020 4:50 PM
[2020-05-21] MEDS: KETOROLAC TROMETHAMINE 15 MG/ML VIAL IV SCH ×2 (16:55→22:19)
--- NOTE | 2020-05-21 20:45 | Hospitalist Progress Note ---
Date of Service May 21, 2020 Assessment & Plan (1) Chest pain: Difficult to know if this is fibromyalgia pain vs costochondritis vs due to COVID-19 infection (pleuritic pain, pericardial pain). Or, could be 2 or more etiologies together. CTA chest on 05/17/20 was completely normal - no pericardial effusion, no PE, no pulmonary infiltrates. CXR 05/19/20 also normal. Sed rate, crp, troponin negative today. EKG again normal today. Cannot fully rule out pericarditis from COVID-19 -- can have normal sed rate, normal crp, and normal EKG and still have pericarditis. Tonight, will Rx with toradol 15mg q6h x 3 scheduled doses. Obtain echo in am. Keep on telemetry. Repeat cxr. (2) Intentional SSRI (selective serotonin reuptake inhibitor) overdose: Leading to serotonin excess - as evidenced by tachycardia, tremors, dilated pupils, diarrhea, etc. These symptoms and signs are improved today. Mild rhabdomyolysis - difficult to know if due to COVID-19 or serotonin excess. Continue copious IV fluids, supportive care, symptomatic care (loperamide, zofran, etc). Zoloft on hold of course. Psychiatry consult appreciated. (3) COVID-19 virus infection: Current symptoms consistent with COVID-19 infection. No evidence of lower respiratory tract disease, however, either clinically or radiographically. Thus, convalescent plasma, remdesevir and dexamethasone have been deferred. O2 sats 100% in RA. Mild rhabdomyolysis may be from COVID infection or SSRI overdose. Cont airborne isolation. Cont IV fluids. (4) Rhabdomyolysis due to COVID-19: CPK did double overnight. She has no evidence of any compartment syndrome however. Continue IV fluids. Repeat BMP and CPK in am. Rhabdo could also be 2nd to SSRI overdose. (5) Drug overdose, intentional: zoloft - see above. uncertain amount - 10-15 tabs or more based on her recollection. 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 TSH, B12, vitamin D wnl. Consider cymbalta, gabapentin, or lyrica for long-term relief of symptoms. Would not initiate at this time. Should see rheum locally. (7) Depression: Defer management to psychiatry. No suicidal thoughts today. Appreciate psych consult. (8) Underweight: BMI 17 (9) Insomnia: Melatonin. Hydroxyzine. (10) DVT prophylaxis: although a healthy 19yo would typically be at low risk of VTE, she takes OCPs and has COVID thus, cont heparin 5000 BID I offered to update a parent or family member - patient declined once again Admission and Anticipated Discharge Date Admission Date: May 19, 2020 Subjective Received call from nursing staff early in the day that patient was c/o chest discomfort bilaterally. She told staff that it felt similar to her fibromyalgia pain. I ordered EKG - it was largely unchanged from prior EKG (my reading). Telemetry normal overnight. Sed rate, crp, and troponin were all negative. During bedside rounds she stated the pain had been present for several hours. ?worse with laying flat? Some pleuritic quality to it. Also tender to palpation over these areas. She had similar chest pain yesterday - does recall that toradol helped some but didn't fully relieve it. She continues with mild cough, largely nonproductive. Continues with mild headache, modestly worsened by bright light. Poor appetite and regular food is giving her nausea. She reports very poor sleep - has not slept since . Was up all night last night. Review of Systems Constitutional: + body aches, + fatigue and + anorexia; no fever and no chills Ear, Nose, Mouth, Throat: no loss of taste/smell Respiratory: as per Subjective / HPI and + cough; no wheezing Cardiovascular: as per Subjective / HPI and + chest pain; no dyspnea on exertion Gastrointestinal: + nausea; no abdominal pain Musculoskeletal: + myalgia Neurologic: + tremor(s) (legs, arms - intermittent ) and + headache(s) Psychiatric: + abnormal sleep pattern and + anxiety Physical Exam Constitutional: + thin; no altered mental status looks much better today Eyes: + dilated pupils; no nystagmus ENMT: external ear and nose normal, oropharynx normal Respiratory: normal respiratory effort, lungs clear to auscultation Cardiovascular: Rate/Rhythm: regular rate and regular rhythm Heart Sounds: normal S1 and normal S2; no murmur Vessels: posterior tibial pulses present and dorsalis pedis pulses present; no JVD Extremities: no edema Chest (Breasts): Additional Comments: exquisite tenderness over multiple areas of the b/l chest wall - tender over upper pectoral muscles; tender along b/l sternal borders; etc Gastrointestinal (Abdomen): normal bowel sounds, soft, nontender, no hepatosplenomegaly Skin: no rashes, warm and dry Neurologic: Motor/Sensory: no tremor (absent today ) Psychiatric: Orientation: alert and oriented x 3 Affect: + anxious affect Results & Data Results & Data ([facility]) Vital Signs (Past 12 Hours) Vital Signs Temp Pulse Pulse Resp BP Pulse Ox 05/21/20 20:06 36.8 C 52 L 18 154/90 H 100 05/21/20 15:17 36.8 C 50 L 16 155/89 H 99 05/21/20 15:00 55 L 05/21/20 11:09 37.2 C 65 18 143/86 H 99 Laboratory Results Laboratory Results - last 24 hr 05/21/20 05/21/20 05/21/20 06:38 06:38 06:38 ESR 2 Sodium 140 Potassium 3.7 Chloride 108 H Carbon Dioxide 26 Anion Gap 6.0 BUN 6 L Creatinine 0.69 Est Cr Clr Drug Dosing 99.2 Est GFR ( Amer) 145.2 Est GFR (Non-Af Amer) 125.3 BUN/Creatinine Ratio 8.4 L Glucose 75 Calcium 8.8 Total Creatine Kinase 3761 H Troponin I < 0.015 C-Reactive Protein 0.29 PG Care Time/CCT Total # of Minutes Spent Total Time Spent with Patient: Total time spent is greater than 50% in coordination of care (as documented) at patient's floor/unit and/or counseling patient: Coding Level of Care Code 77585 Subseq Hosp Care Lvl 3 Diagnoses Chest pain R07.9 Chest pain type: unspecified Intentional SSRI (selective serotonin reuptake inhibitor) overdose T43.222D Encounter type: subsequent encounter COVID-19 virus infection U07.1 Rhabdomyolysis due to COVID-19 U07.1; M62.82 Drug overdose, intentional T50.902A Encounter type: initial encounter Fibromyalgia M79.7 Depression F32.9 Depression Type: unspecified Underweight R63.6 Insomnia G47.00 DVT prophylaxis Z29.9 (1) Intentional SSRI (selective serotonin reuptake inhibitor) overdose Encounter type: subsequent encounter Qualified Code(s): T43.222D - Poisoning by selective serotonin reuptake inhibitors, intentional self-harm, subsequent encounter (2) Drug overdose, intentional Encounter type: initial encounter Qualified Code(s): T50.902A - Poisoning by unspecified drugs, medicaments and biological substances, intentional self-harm, initial encounter (3) Depression Depression Type: unspecified Qualified Code(s): F32.9 - Major depressive disorder, single episode, unspecified (4) Chest pain Chest pain type: unspecified Qualified Code(s): R07.9 - Chest pain, unspecified
[2020-05-21] MEDS: hydrOXYzine HCl 25 MG TAB PO PRN (22:29)
[2020-05-22] MEDS: LACTATED RINGER'S 1,000 ML IV SCH ×4 (03:56→19:37)
[2020-05-22] MEDS: KETOROLAC TROMETHAMINE 15 MG/ML VIAL IV SCH (05:53)
[2020-05-22 08:21] LABS: BUN Creatinine Ratio 10.2 (10-20); Calcium 8.6 mg/dl (8.5-10.1); Creatinine Clr Calc Pharmacy 105.3 ml/min; Est GFR (African American) 148.1; Est GFR (Non-African American) 127.8; Potassium 3.5 mmol/L (3.5-5.1)
--- NOTE | 2020-05-22 08:46 | Psychiatric Progress Note ---
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 She states the overdose was impulsive in the setting of chronic pain. Pt has been denying SI since her hospital admission. (1) Drug overdose, intentional: 05/20 - Patient reports overdose was impulsive and she immediately regretted it. She is denying SI currently. -We will provide her with a patient workbook and assist her to work on a safety plan. -Recommend family meeting w/ social work - she is refusing involvement of her family, but says she would be willing for a meeting with her friends. 05/21 -family meeting to be held with the community mental health social worker and patient's boyfriend today. Although her father is now aware that she is in the hospital, she still does not want to involve him in treatment. -[facility] staff will assist her in developing a safety plan. 05/22 - Pt continues to deny SI, family meeting with boyfriend yesterday - safety planning recommendations reviewed (2) Depression: 05/20 -Long history of recurrent depression. Patient had been started on sertraline 50 mg a couple of months ago and reports it has been helpful. Recommend resuming it once is appropriate from a medical standpoint, as she is still having symptoms of serotonin syndrome as a result of her overdose. -[facility] community mental health social worker can assist with arranging a family meeting and referring her for outpatient treatment. She indicates she would prefer to have her PCP to continue managing her psychiatric conditions, but it may be beneficial for her to see a specialist. We will try to contact her PCP's office, [facility] in [place], where she sees Rosi TALAVERA to determine if she will continue to manage the patient or would like her to be referred to psychiatry. -Patient will benefit from psychotherapy and is requesting a referral to [facility], as she [place] campus and does not have a car. 05/21 -patient reports she takes trazodone at home, but recommend holding it and sertraline until serotonin syndrome has resolved. Could use hydroxyzine 50 mg at bedtime as needed for insomnia in the meantime, as melatonin was reportedly unhelpful last night. -Social work to refer for outpatient mental health treatment tomorrow. 05/22 - Continue current medication plan - patient is still reporting tremors and persistent chest pain. Home medication regimen of sertraline and trazodone could be resumed when symptoms resolve. - Pt reports hydroxyzine was somewhat helpful, but she is still sleeping poorly - will offer a second prn dose of 50mg to be available - Coordinating outpatient psychiatric services - PCP reportedly agrees with our recommendation for referral for a psychiatric provider. Risk Factors Assessment Male: No : Yes Do You Have Access To A Gun?: No Health Problems: Yes Mental Health Diagnoses: Yes Substance Use Disorders: No Previous Attempt: Yes Previous Psychiatric Hospitalization: Yes Hopelessness: No Protective Factors Assessment : No Responsible for Young Children: No Employed: No Stable Relationships: Yes Interval History Identifying Information 19-year-old female admitted medically on 05/19/2020 after presenting to the ED s/ p intentional sertraline overdose. Pt was admitted to our medical floor due to serotonin syndrome symptoms and positive COVID-10 status with psychiatric consultation for evaluation and coordination of services. Chief Complaint "Um, from a mental perspective, I'm feeling better. Not suicidal or thinking about hurting myself. From a medical perspective, I'm still not sleeping well." Review of Systems Notes Constitutional: reports poor sleep (approx. 1 hour last evening per patient reports) Cardiovascular: reports persistent chest pain Respiratory: denied Gastrointestinal: denied Neurological: tremor ongoing, specifically in right leg per patient Psychiatric: denies symptoms other than stated above Total of at least 10 systems reviewed, pertinent positives as above and in HPI. Telehealth Telehealth Telehealth Options: Telephone only For the duration of the visit, provider was performing the assessment from: The same facility as the patient After establishing a telemedicine visit, patient was: Patient was verified with two unique identifiers Subjective Subjective Patient's case has been reviewed and discussed daily as part of morning report/treatment team. Staff report positive meeting with patient's boyfriend via phone yesterday. Boyfriend is planning to secure medications and continue to offer support. Outpatient psychiatric services still need to be confirmed. Patient was contacted via phone to assess progress since admission. Pt reports "Um, from a mental perspective, I'm feeling better. Not suicidal or thinking about hurting myself. From a medical perspective, I'm still not sleeping well." Pt admits that the hydroxyzine she received last evening offered her "at least an hour of sleep, which was more than I had been getting." Pt admits that sleep is rather poor even outside of the hospital. We reviewed ongoing tremor and c oncern for persistent chest pain. Pt aware of recommendations to continue holding her home medications due to serotonin syndrome symptoms. She is agreeing to continue hydroxyzine for the time being, and agreed to having a second dose available as needed for sleep. Pt denies SI and states that she felt the meeting with her boyfriend went well yesterday. Reviewed plan to confirm aftercare services, ideally today now that offices have re-opened for the work week. Pt admits that her ongoing chest pain continues to be a concern. She admits that anxiety tends to exacerbate the severity of the pain, but admits this is not the only trigger for worsening pain. Reviewed current treatment plan with patient, who verbalized understanding and was in agreement. Will plan to resume home regimen of sertraline and trazodone when medically appropriate to do so. Pt agreed to continued phone calls from our service as care continues to be coordinated. She denied other needs or concerns at this time. Physical Exam Psychiatric Orientation: alert, oriented x 3 and cooperative Speech: normal rate/rhythm/volume of speech Mood: no depressed mood ("I'm feeling better") Thought Process: goal directed thought process, clear/coherent thought process and thought association intact Thought Content: reality based without delusions; no hopelessness and no worthlessness Suicidal Thoughts: denies suicidal thoughts, denies suicidal plan and denies suicidal intent Homicidal Thoughts: denies homicidal thoughts Hallucinations: no auditory hallucinations and no visual hallucinations Cognition: attention grossly intact and language grossly intact Estimated Intelligence: consistent with education level Insight: + fair insight Judgement: + fair judgement Vital Signs (Past 24 Hours) Last Vital Signs Temp 36.9 C 05/22/20 07:44 Pulse 56 L 05/22/20 07:44 Resp 16 05/22/20 07:44 BP 136/79 05/22/20 07:44 Pulse Ox 97 05/22/20 07:44 Unable to comment on visual aspects of examination - visit was conducted via telephone call due to patient's positive COVID-19 status. Results & Data ([facility]) Laboratory Results Laboratory Results - last 24 hr 05/21/20 05/21/2021 06:38 06:38 07:13 ESR 2 Sodium 143 Potassium 3.5 Chloride 107 Carbon Dioxide 26 Anion Gap 10.0 BUN 7 Creatinine 0.65 Est Cr Clr Drug Dosing 105.3 Est GFR ( Amer) 148.1 Est GFR (Non-Af Amer) 127.8 BUN/Creatinine Ratio 10.2 Glucose 68 L Calcium 8.6 AST 113 H ALT 52 Total Creatine Kinase 2239 H Troponin I < 0.015 C-Reactive Protein 0.29 Current Inpatient Medications Current Inpatient Medications: Current Inpatient Medications Heparin Sodium (Porcine) (Heparin Sod 5,000 Unit/0.5 Ml Vial) 5,000 units SQ Q12 GAYATHRI Stop: 06/19/20 21:29 Last Admin: 05/21/20 20:09 Dose: 5,000 units Documented by: Hydroxyzine HCl (Hydroxyzine Hcl 25 Mg Tab) 50 mg PO HS PRN PRN Reason: Sleep Stop: 06/20/20 17:35 Last Admin: 05/21/20 22:29 Dose: 50 mg Documented by: Lactated Ringer's (Lr) 1,000 mls @ 125 mls/hr IV .Q8H GAYATHRI Stop: 06/18/20 20:14 Last Admin: 05/22/20 03:56 Dose: 125 mls/hr Documented by: Famotidine 20 mg/ Syringe 5 mls @ 2.5 mls/min IV BID GAYATHRI Stop: 06/19/20 21:29 Last Admin: 05/21/20 20:08 Dose: 2.5 mls/min Documented by: Ketorolac Tromethamine (Ketorolac Tromethamine 15 Mg/Ml Vial) 15 mg IV Q6H PRN; Protocol PRN Reason: Pain Stop: 05/25/20 09:28 Last Admin: 05/21/20 06:10 Dose: 15 mg Documented by: Lactobacillus Acidoph/Casei/Rhamnos (Advanced Probiotic 1250 Mg Capsule) 2 cap PO DAILY GAYATHRI Stop: 06/19/20 09:29 Last Admin: 05/21/20 09:04 Dose: 2 cap Documented by: Loperamide HCl (Loperamide Hcl 2 Mg Cap) 2 mg PO Q3H PRN PRN Reason: diarrhea Stop: 06/19/20 09:25 Last Admin: 05/20/20 10:25 Dose: 2 mg Documented by: Melatonin (Melatonin 3 Mg Tab) 3 mg PO HS PRN PRN Reason: Sleep Stop: 06/19/20 01:29 Last Admin: 05/20/20 23:27 Dose: 3 mg Documented by: Ondansetron HCl (Ondansetron Inj 2 Mg/Ml 2 Ml Vial) 4 mg IV Q6H PRN PRN Reason: Nausea And Vomiting Stop: 06/19/20 09:25 Last Admin: 05/21/20 11:23 Dose: 4 mg Documented by: Pregabalin (Pregabalin 50 Mg Cap) 50 mg PO HS GAYATHRI Stop: 06/18/20 20:59 Last Admin: 05/19/20 21:11 Dose: 50 mg Documented by: Post Discharge Appointments Primary Care Physician Name Of Family Doctor: [facility] Other #1: Name of Aftercare Appointment: Maeve Valencia, [facility] Phone Number of Aftercare Appointment: [phone] (1) Drug overdose, intentional Encounter type: initial encounter Qualified Code(s): T50.902A - Poisoning by unspecified drugs, medicaments and biological substances, intentional self-harm, initial encounter (2) Depression Depression Type: unspecified Qualified Code(s): F32.9 - Major depressive disorder, single episode, unspecified
[2020-05-22] MEDS: FAMOTIDINE 20 MG in SYRINGE 3 ML IV SCH ×2 (08:51→20:31)
[2020-05-22] MEDS: HEPARIN SOD 5,000 UNIT/0.5 ML VIAL SQ SCH ×2 (08:52→20:31)
[2020-05-22] MEDS: ADVANCED PROBIOTIC 1250 MG CAPSULE PO SCH (08:52)
[2020-05-22] MEDS: KETOROLAC TROMETHAMINE 15 MG/ML VIAL IV PRN (13:10)
--- NOTE | 2020-05-22 13:36 | Electrocardiogram Report ---
Test Reason : Blood Pressure : / mmHG Vent. Rate : 057 BPM Atrial Rate : 057 BPM P-R Int : 132 ms QRS Dur : 086 ms QT Int : 440 ms P-R-T Axes : 084 083 055 degrees QTc Int : 428 ms Poor data quality, interpretation may be adversely affected Sinus bradycardia Otherwise normal ECG When compared with ECG of 19-MAY-2020 13:01, No significant change was found Confirmed by Rene Ruff ([id number]) on 05/22/2020 1:35:53 PM Referred By: REFERRED SELF Confirmed By:Rene Ruff
--- NOTE | 2020-05-22 22:03 | Hospitalist Progress Note ---
Date of Service May 22, 2020 Assessment & Plan (1) Chest pain: Difficult to know if this is fibromyalgia pain vs costochondritis vs due to COVID-19 infection (pleuritic pain, pericardial pain). Or, could be 2 or more etiologies together. CTA chest on 05/17/20 was completely normal - no pericardial effusion, no PE, no pulmonary infiltrates. CXR 05/19/20 also normal. Sed rate, crp, troponin negative today. EKG again normal today. Cannot fully rule out pericarditis from COVID-19 -- can have normal sed rate, normal crp, and normal EKG and still have pericarditis. Tonight, will Rx with toradol 15mg q6h x 3 scheduled doses. due to covid, echo was not obtained, exam shows no rub and patient feeling better. Will continue to monitor day to day. (2) Intentional SSRI (selective serotonin reuptake inhibitor) overdose: Leading to serotonin excess - as evidenced by tachycardia, tremors, dilated pupils, diarrhea, etc. These symptoms and signs are improved today. Mild rhabdomyolysis - difficult to know if due to COVID-19 or serotonin excess. Continue copious IV fluids, supportive care, symptomatic care (loperamide, zofran, etc). Zoloft on hold of course. Psychiatry consult appreciated. Plan is to discharge on cymbalta and lyrica once cleared to take this medicine and if psych is in agreeance. (3) COVID-19 virus infection: Current symptoms consistent with COVID-19 infection. No evidence of lower respiratory tract disease, however, either clinically or radiographically. Thus, convalescent plasma, remdesevir and dexamethasone have been deferred. O2 sats 100% in RA. Mild rhabdomyolysis may be from COVID infection or SSRI overdose. Cont airborne isolation. Cont IV fluids. (4) Rhabdomyolysis due to COVID-19: CPK did double overnight. She has no evidence of any compartment syndrome however. Continue IV fluids. Repeat BMP and CPK in am. Rhabdo could also be 2nd to SSRI overdose. CK is improving on 05/22 (5) Drug overdose, intentional: zoloft - see above. uncertain amount - 10-15 tabs or more based on her recollection. 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 TSH, B12, vitamin D wnl. Consider cymbalta, gabapentin, or lyrica for long-term relief of symptoms. Would not initiate at this time. Should see rheum locally. (7) Depression: Defer management to psychiatry. No suicidal thoughts today. Appreciate psych consult. (8) Underweight: BMI 17 (9) Insomnia: Melatonin. Hydroxyzine. (10) DVT prophylaxis: although a healthy 19yo would typically be at low risk of VTE, she takes OCPs and has COVID thus, cont heparin 5000 BID I offered to update a parent or family member - patient declined once again Admission and Anticipated Discharge Date Admission Date: May 19, 2020 Subjective Patient does not feel back to baseline as of yet. Patient continues to report feeling weak. Review of Systems Review of Systems: All systems reviewed & are unremarkable except as noted in HPI & below Physical Exam Physical Exam: Constitutional: + thin; no altered mental status looks much better today Eyes: PUPILS appear normal; no nystagmus ENMT: external ear and nose normal, oropharynx normal Respiratory: normal respiratory effort, lungs clear to auscultation Cardiovascular: Rate/Rhythm: regular rate and regular rhythm Heart Sounds: normal S1 and normal S2; no murmur Extremities: no edema Chest (Breasts): Additional Comments: exquisite tenderness over multiple areas of the b/l chest wall - tender over upper pectoral muscles; tender along b/l sternal borders; etc Gastrointestinal (Abdomen): normal bowel sounds, soft, nontender, no he patosplenomegaly Skin: no rashes, warm and dry Neurologic: Motor/Sensory: no tremor (absent today ) Psychiatric: Orientation: alert and oriented x 3 Results & Data Results & Data ([facility]) Vital Signs (Past 12 Hours) Vital Signs Temp Pulse Pulse Pulse Resp BP Pulse Ox 05/22/20 20:30 36.7 C 66 18 127/77 98 05/22/20 16:00 49 L 05/22/20 14:47 36.6 C 55 L 16 147/83 H 98 05/22/20 13:16 53 L 05/22/20 11:26 36.9 C 67 16 119/73 98 PG Care Time/CCT Total # of Minutes Spent Total Time Spent with Patient: Total time spent is greater than 50% in coordination of care (as documented) at patient's floor/unit and/or counseling patient: Coding Level of Care Code 41200 Subseq Hosp Care Lvl 3 Diagnoses Chest pain R07.9 Chest pain type: unspecified Intentional SSRI (selective serotonin reuptake inhibitor) overdose T43.222D Encounter type: subsequent encounter COVID-19 virus infection U07.1 Rhabdomyolysis due to COVID-19 U07.1; M62.82 Drug overdose, intentional T50.902A Encounter type: initial encounter Fibromyalgia M79.7 Depression F32.9 Depression Type: unspecified Underweight R63.6 Insomnia G47.00 DVT prophylaxis Z29.9 Time Spent (min) 35 (1) Drug overdose, intentional Encounter type: initial encounter Qualified Code(s): T50.902A - Poisoning by unspecified drugs, medicaments and biological substances, intentional self-harm, initial encounter (2) Depression Depression Type: unspecified Qualified Code(s): F32.9 - Major depressive disorder, single episode, unspecified (3) Chest pain Chest pain type: unspecified Qualified Code(s): R07.9 - Chest pain, unspe cified (4) Intentional SSRI (selective serotonin reuptake inhibitor) overdose Encounter type: subsequent encounter Qualified Code(s): T43.222D - Poisoning by selective serotonin reuptake inhibitors, intentional self-harm, subsequent encounter
[2020-05-22] MEDS: hydrOXYzine HCl 25 MG TAB PO PRN (22:06)
[2020-05-23] MEDS: LACTATED RINGER'S 1,000 ML IV SCH ×2 (03:50→11:09)
[2020-05-23 07:50] LABS: Hematocrit (blood only) 37.4 % (37-47); Hemoglobin 12.5 g/dL (12.0-16.0); Mean Corpuscular Hemoglobin 29.2 pg (25-34); Mean Corpuscular Hgb Conc 33.4 g/dL (32-36); Mean Corpuscular Volume 87.4 fL (80-100); Mean Platelet Volume 10.3 fL (7.4-10.4); Platelet Count 164 K/uL (130-400); RDW Coefficient of Variation 12.8 % (11.5-14.5); RDW Standard Deviation 41.3 fL (36.4-46.3); Red Blood Count 4.28 M/uL (4.2-5.4); White Blood Count 4.51 K/uL (4.8-10.8)
[2020-05-23] MEDS: FAMOTIDINE 20 MG in SYRINGE 3 ML IV SCH (08:42)
[2020-05-23] MEDS: ADVANCED PROBIOTIC 1250 MG CAPSULE PO SCH (08:42)
[2020-05-23] MEDS: HEPARIN SOD 5,000 UNIT/0.5 ML VIAL SQ SCH (08:42)
--- NOTE | 2020-05-23 09:10 | Psychiatric Progress Note ---
Date of Service May 23, 2020 Impression / Recommendations (1) Drug overdose, intentional: 05/20 - Patient reports overdose was impulsive and she immediately regretted it. She is denying SI currently. -We will provide her with a patient workbook and assist her to work on a safety plan. -Recommend family meeting w/ social work - she is refusing involvement of her family, but says she would be willing for a meeting with her friends. 05/21 -family meeting to be held with the social work specialist and patient's boyfriend today. Although her father is now aware that she is in the hospital, she still does not want to involve him in treatment. -[facility] staff will assist her in developing a safety plan. 05/22 - Pt continues to deny SI, family meeting with boyfriend yesterday - safety planning recommendations reviewed 05/23 - Pt continues to deny SI - safety plan completed - Pt denies acute psychiatric needs at this time - Outpatient psychiatric services reviewed (2) Depression: 05/20 -Long history of recurrent depression. Patient had been started on sertraline 50 mg a couple of months ago and reports it has been helpful. Recommend resuming it once is appropriate from a medical standpoint, as she is still having symptoms of serotonin syndrome as a result of her overdose. -[facility] social work specialist can assist with arranging a family meeting and referring her for outpatient treatment. She indicates she would prefer to have her PCP to continue managing her psychiatric conditions, but it may be beneficial for her to see a specialist. We will try to contact her PCP's office, [facility] in [place], where she sees Rosi TALAVERA to determine if she will continue to manage the patient or would like her to be referred to psychiatry. -Patient will benefit from psychotherapy and is requesting a referral to [facility], as she lives on campus and does not have a car. 05/21 -patient reports she takes trazodone at home, but recommend holding it and sertraline until serotonin syndrome has resolved. Could use hydroxyzine 50 mg at bedtime as needed for insomnia in the meantime, as melatonin was reportedly unhelpful last night. -Social work to refer for outpatient mental health treatment tomorrow. 05/22 - Continue current medication plan - patient is still reporting tremors and persistent chest pain. Home medication regimen of sertraline and trazodone could be resumed when symptoms resolve. - Pt reports hydroxyzine was somewhat helpful, but she is still sleeping poorly - will offer a second prn dose of 50mg to be available - Coordinating outpatient psychiatric services - PCP reportedly agrees with our recommendation for referral for a psychiatric provider. 05/23 - Updates discussed between psychiatry and hospitalist via [employer] messaging - reviewed considerations to adjust her antidepressant regimen to better target her fibromyalgia concerns as well. - Consideration to initiate duloxetine once confirmed that serotonin syndrome symptoms have resolved (seems much improved per patient's reports) - patient admits she had been prescribed the medication in the past, but the medication was not titrated past the starting dose. Pt was agreeable with discussing medication adjustments further - She continues to deny SI and acute safety concerns. Safety plan is reportedly completed and was reviewed during her support meeting with her boyfriend - will request that a copy be obtained for the patient's chart. - Pt updated on plan to receive outpatient psychiatric services through [facility] for both therapy and medication management. Pt will also receive follow-up through [facility]. - Pt denied other needs from our service at this time. Our service will transition to more of a supportive role at this point - please reach out with any questions or concerns. - Based on review of patient's case and their current presentation, risk of harm to self or others is no longer perceived to be acute. Management of psychiatric symptoms on an outpatient basis seems the most appropriate and least restrictive setting. Pt seems appropriate for discharge when medically cleared - recommendation include consistent follow-up with outpatient psychiatric prescriber and therapist. Pt verbalized understanding of discharge plan reviewed and is agreeable with plan to be discharged home when medically cleared. Risk Factors Assessment Male: No : Yes Do You Have Access To A Gun?: No Health Problems: Yes Mental Health Diagnoses: Yes Substance Use Disorders: No Previous Attempt: Yes Previous Psychiatric Hospitalization: Yes Hopelessness: No Protective Factors Assessment : No Responsible for Young Children: No Employed: No Stable Relationships: Yes Interval History Identifying Information 19-year-old female admitted medically on 05/19/2020 after presenting to the ED s/p intentional sertraline overdose. Pt was admitted to our medical floor due to serotonin syndrome symptoms and positive COVID-10 status with psychiatric consultation for evaluation and coordination of services. Chief Complaint "I'm tired." Review of Systems Notes Constitutional: continued poor sleep, reports fatigue and dizziness Cardiovascular: ongoing chest pain Respiratory: denied Gastrointestinal: reports constipation Neurological: denied Psychiatric: denies symptoms other than stated above Total of at least 10 systems reviewed, pertinent positives as above and in HPI. Telehealth Telehealth Telehealth Options: Telephone only For the duration of the visit, provider was performing the assessment from: The same facility as the patient After establishing a telemedicine visit, patient was: Patient/authorized rep acknowledged consent and understanding and Gave permission to continue telehealth session Subjective Subjective Patient's case has been reviewed and discussed daily during morning report with our psychiatric team. Pt has been referred to [facility] for outpatient psychiatric treatment, with appointments scheduled for later this week (may need rescheduled depending on discharge timeline). Call placed to patient's room phone today to assess progress since admission. Pt does sound drowsy when answering the phone, and stated "I'm tired." Pt admits that she slept mildly better last evening, believing she got 2-3 hours of sleep. Pt denies concerns related to her mood or anxiety. She continues to report dizziness, constipation, and chest pain, but otherwise denies any acute physical concerns. Reviewed discussion with her a ttending physician regarding consideration to introduce duloxetine rather than sertraline when medically appropriate, due to FDA-approved indication for fibromyalgia. Pt admits that she would be willing for this. She states she had taken duloxetine in the past, but does not believe it was titrated beyond just the starting dose. Pt denied benefits at the initial dose, but also denied known side effects. Pt was updated on scheduled appointments through [facility] and denied questions or concerns. She states she has been working through the [facility]. She reports she has completed the "safety planning" section of the workbook and reviewed this during her support meeting with her boyfriend. She felt the strategies were adequately discussed during their meeting and denies any additional questions at this time. Pt denied any acute psychiatric concerns at this time. She was informed of our plans to move to a more supportive role at this time, as she is denying SI, plan to resume medications has been discussed, and aftercare appointments are in place. Pt was encouraged to reach out to our service with any additional questions or updates. Physical Exam Psychiatric Orientation: alert, oriented x 3 and cooperative Speech: normal rate/rhythm/volume of speech (sounds drowsy ) Mood: no depressed mood ("I'm ok, just tired") Thought Process: goal directed thought process, clear/coherent thought process and thought association intact Thought Content: reality based without delusions; no hopelessness and no worthlessness Suicidal Thoughts: denies suicidal thoughts, denies suicidal plan and denies suicidal intent Homicidal Thoughts: denies homicidal thoughts Hallucinations: no auditory hallucinations and no visual hallucinations Cognition: attention grossly intact and language grossly intact Estimated Intelligence: consistent with education level Insight: + fair insight Judgement: + fair judgement Vital Signs (Past 24 Hours) Last Vital Signs Temp 36.5 C 05/23/20 07:50 Pulse 62 05/23/20 07:50 Resp 19 05/23/20 07:50 BP 111/67 05/23/20 07:50 Pulse Ox 98 05/23/20 07:50 Unable to assess visual aspects of exam - visit conducted via telephone call due to patient's positive COVID-19 status. Results & Data ([facility]) Laboratory Results Laboratory Results - last 24 hr 05/20/20 05/23/20 08:32 07:36 WBC 4.51 L RBC 4.28 Hgb 12.5 Hct 37.4 MCV 87.4 MCH 29.2 MCHC 33.4 RDW Std Deviation 41.3 RDW Coeff of Charli 12.8 Plt Count 164 MPV 10.3 POC Ur Test Cancelled Current Inpatient Medications Current Inpatient Medications: Current Inpatient Medications Heparin Sodium (Porcine) (Heparin Sod 5,000 Unit/0.5 Ml Vial) 5,000 units SQ Q12 GAYATHRI Stop: 06/19/20 21:29 Last Admin: 05/23/20 08:42 Dose: 5,000 units Documented by: Hydroxyzine HCl (Hydroxyzine Hcl 25 Mg Tab) 50 mg PO HS PRN PRN Reason: Sleep Stop: 06/20/20 17:35 Last Admin: 05/22/20 22:06 Dose: 50 mg Documented by: Lactated Ringer's (Lr) 1,000 mls @ 125 mls/hr IV .Q8H GAYATHRI Stop: 06/18/20 20:14 Last Admin: 05/23/20 03:50 Dose: 125 mls/hr Documented by: Famotidine 20 mg/ Syringe 5 mls @ 2.5 mls/min IV BID GAYATHRI Stop: 06/19/20 21:29 Last Admin: 05/23/20 08:42 Dose: 2.5 mls/min Documented by: Ketorolac Tromethamine (Ketorolac Tromethamine 15 Mg/Ml Vial) 15 mg IV Q6H PRN; Protocol PRN Reason: Pain Stop: 05/25/20 09:28 Last Admin: 05/22/20 13:10 Dose: 15 mg Documented by: Lactobacillus Acidoph/Casei/Rhamnos (Advanced Probiotic 1250 Mg Capsule) 2 cap PO DAILY GAYATHRI Stop: 06/19/20 09:29 Last Admin: 05/23/20 08:42 Dose: 2 cap Documented by: Loperamide HCl (Loperamide Hcl 2 Mg Cap) 2 mg PO Q3H PRN PRN Reason: diarrhea Stop: 06/19/20 09:25 Last Admin: 05/20/20 10:25 Dose: 2 mg Documented by: Melatonin (Melatonin 3 Mg Tab) 3 mg PO HS PRN PRN Reason: Sleep Stop: 06/19/20 01:29 Last Admin: 05/20/20 23:27 Dose: 3 mg Documented by: Ondansetron HCl (Ondansetron Inj 2 Mg/Ml 2 Ml Vial) 4 mg IV Q6H PRN PRN Reason: Nausea And Vomiting Stop: 06/19/20 09:25 Last Admin: 05/21/20 11:23 Dose: 4 mg Documented by: Pregabalin (Pregabalin 50 Mg Cap) 50 mg PO HS [facility] Stop: 06/18/20 20:59 Last Admin: 05/19/20 21:11 Dose: 50 mg Documented by: Mental Health & Subst Abuse Tx Psychiatrist Name of Psychiatrist: ROCIO Paris Psychiatrist's Date of Appointment with Psychiatrist: 05/29/20 Time of Appointment with Psychiatrist: 1:30 p.m. Psychiatric Appointment Comment: Virtual - will email you directions Therapist Name of Therapist: ROCIO Anderson Therapist's Date of Therapist Appointment: 05/25/20 Time of Therapist Appointment: 10:30 a.m. Therapy Appointment Comment: Virtual - will email you directions Post Discharge Appointments Primary Care Physician Name Of Family Doctor: [facility] ILAN Dobson Primary [facility] Time of Appointment with PCP: Follow up as needed Provider Appointment Comment: [address] [facility] [place] [id number] Specialist Name of Specialist: Rheumatology - Dr. Abdullahi Saucedo Phone Number for Specialist: Time of Appointment with Specialist: Please follow up with your previously scheduled appointment - July Specialty Appointment Comment: [id number] [facility], [place], [address] Other #1: Name of Aftercare Appointment: [facility] - Maeve Valencia Phone Number of Aftercare Appointment: [phone] Date of Aftercare Appointment: 05/26/20 Time of Aftercare Appointment: 2:30 p.m. Aftercare Appointment Comment: Will call you Contact Information Discharge Discharge Address: [address] [place] [id number] (1) Drug overdose, intentional Encounter type: initial encounter Qualified Code(s): T50.902A - Poisoning by unspecified drugs, medicaments and biological substances, intentional self-harm, initial encounter (2) Depression Depression Type: unspecified Qualified Code(s): F32.9 - Major depressive disorder, single episode, unspecified
[2020-05-23] MEDS: KETOROLAC TROMETHAMINE 15 MG/ML VIAL IV PRN (11:10)
[2020-05-24 09:30] LABS: MDA negative; MDEA negative; MDMA (Ecstasy) Urine, Confirm negative
--- NOTE | 2020-05-31 07:05 | Discharge Summary ---
Date of Service May 23, 2020 Admission HPI Per Admitting Provider 19 yo female with history of fibromyalgia. Patient reports she was recently tested for COVID 19 on Friday and was positive. Patient reports having subjective fever and a cough and worsening pain. These symptoms have subsided however, however patient continues to have her fibromyalgia pain. She reports this is ongoing and has reached a point that she is unable to tolerate it. She reports this pain is mainly in her chest, back and abdomen. She was diagnosed with fibromyalgia last year but has been having pain since the 9th grade. She has been on multiple treatment options and she feels like nothing has worked. She reports having been on cymbalta in the past, with no improvement. She comes in after taking multiple pills of zoloft to end her life. Principal Diagnosis Rhabdomyolysis Discharge Exam Constitutional: + thin; no altered mental status looks much better today Eyes: PUPILS appear normal; no nystagmus ENMT: external ear and nose normal, oropharynx normal Respiratory: normal respiratory effort, lungs clear to auscultation Cardiovascular: Rate/Rhythm: regular rate and regular rhythm Heart Sounds: normal S1 and normal S2; no murmur Extremities: no edema Chest (Breasts): Additional Comments: exquisite tenderness over multiple areas of the b/l chest wall - tender over upper pectoral muscles; tender along b/l sternal borders; etc Gastrointestinal (Abdomen): normal bowel sounds, soft, nontender, no hepatosplenomegaly Skin: no rashes, warm and dry Neurologic: Motor/Sensory: no tremor (absent today ) Psychiatric: Orientation: alert and oriented x 3 Discharge Data Allergies Allergy/AdvReac Type Severity Reaction Status Date / Time escitalopram [From Lexapro] AdvReac Unknown "Turn Pale Unverified 05/19/20 16:31 Green, Can't Concentrate, Can't Remember." Consultations 05/19/20 14:15 ED Decision to Admit Stat 05/19/20 14:51 Consult Psychiatry Routine Hospital Course (1) Chest pain: Difficult to know if this is fibromyalgia pain vs costochondritis vs due to COVID-19 infection (pleuritic pain, pericardial pain). Or, could be 2 or more etiologies together. CTA chest on 05/17/20 was completely normal - no pericardial effusion, no PE, no pulmonary infiltrates. CXR 05/19/20 also normal. Sed rate, crp, troponin negative today. EKG again normal today. Cannot fully rule out pericarditis from COVID-19 -- can have normal sed rate, normal crp, and normal EKG and still have pericarditis. Tonight, will Rx with toradol 15mg q6h x 3 scheduled doses. due to covid, echo was not obtained, exam shows no rub and patient feeling better. LIKELY FROM FIBROMYALGIA (2) Intentional SSRI (selective serotonin reuptake inhibitor) overdose: Leading to serotonin excess - as evidenced by tachycardia, tremors, dilated pupils, diarrhea, etc. These symptoms and signs are improved today. Mild rhabdomyolysis - difficult to know if due to COVID-19 or serotonin excess. Continue copious IV fluids, supportive care, symptomatic care (loperamide, zofran, etc). Zoloft on hold of course. Psychiatry consult appreciated. Plan is to discharge on cymbalta and lyrica. Patient is cleared to take this medication. (3) COVID-19 virus infection: Current symptoms consistent with COVID-19 infection. No evidence of lower respiratory tract disease, however, either clinically or radiographically. Thus, convalescent plasma, remdesevir and dexamethasone have been deferred. O2 sats 100% in RA. Mild rhabdomyolysis may be from COVID infection or SSRI overdose. Cont airborne isolation. Cont IV fluids. (4) Rhabdomyolysis due to COVID-19: CPK did double overnight. She has no evidence of any compartment syndrome however. Continue IV fluids. Repeat BMP and CPK in am. Rhabdo could also be 2nd to SSRI overdose. CK is improving on 05/22 (5) Drug overdose, intentional: zoloft - see above. uncertain amount - 10-15 tabs or more based on her recollection. (6) Fibromyalgia: Established diagnosis by an out-of-town claims adjudicator. TSH, B12, vitamin D wnl. Consider cymbalta, gabapentin, or lyrica for long-term relief of symptoms. Would not initiate at this time. Should see rheum locally. (7) Depression: Defer management to psychiatry. No suicidal thoughts today. Appreciate psych consult. (8) Underweight: BMI 17 (9) Insomnia: Melatonin. Hydroxyzine. (10) DVT prophylaxis: although a healthy 19yo would typically be at low risk of VTE, she takes OCPs and has COVID thus, cont heparin 5000 BID I offered to update a parent or family member - patient declined once again Total Time Total Time Spent Total Time Spent (In Minutes): 32 Total Time Includes: Examination of the Patient, Discharge Planning and Medication Reconciliation Discharge Plan Discharge Items Patient Disposition: Home - Self-Care Reason For Visit: SUICIDE ATTEMPT/ COVID + Discharge Diagnosis: suicide attempt Activity: Resume your previous activity Non-emergency contact: Primary Care Provider Call non-emergency contact if: you have any medication questions Follow-up/Referrals: PCP,NO [Primary Care Provider] - Diet: Regular Addtl Attending Provider Instructions: Referred to [facility] for outpatient psychiatry and psychotherapy with an initial appointment on 05/25/2020 at 10:30 AM Take Cymbalta in AM and Lyrica in PM. Lyrica may make you drowsy so for next 3 days, do not take any additional sleeping aids. Pending Studies at Discharge: No Stand-Alone Forms: My [facility] Only [place], Smoking Cessation Medications and DC Order Prescriptions: New pregabalin [Lyrica] 50 mg Capsule 50 mg PO HS Qty: 30 RF: 0 duloxetine [Cymbalta] 30 mg capsule,delayed release(DR/EC) 30 mg PO DAILY Qty: 30 RF: 0 Continued ondansetron 4 mg tablet,disintegrating 4 mg PO Q6H PRN (Reason: nausea and vomiting) Qty: 20 RF: 0 norethindrone-e.estradiol-iron [Junel 04/12 (28)] 1 mg-20 mcg (21)/75 mg (7) Tablet 1 tab PO QAM RF: 0 Discontinued benzonatate 200 mg capsule 200 mg PO Q6H PRN (Reason: cough) Qty: 20 RF: 0 sertraline [Zoloft] 50 mg Tablet 50 mg PO ONCE RF: 0 dextroamphetamine-amphetamine [Adderall] 5 mg Tablet 5 mg PO QAM RF: 0 Discharge Orders: Discharge Order (Routine); Ordered 05/23/20 Ordered By: Davon Abdi Admission Data Admit Date/Time: 05/19/20 14:51 Attending Provider: Davon Abdi Admit Provider: Davon Abdi Primary Care Provider: PCP,NO Other Providers: Rosi Schwartz Other Interventions: Discharge Summary Assessment (RN) Last Done: 03/02/21 13:43 Coding Level of Care Code D/C Day Management >30 mins Diagnoses Chest pain R07.9 Chest pain type: unspecified Intentional SSRI (selective serotonin reuptake inhibitor) overdose T43.222D Encounter type: subsequent encounter COVID-19 virus infection U07.1 Rhabdomyolysis due to COVID-19 U07.1; M62.82 Drug overdose, intentional T50.902A Encounter type: initial encounter Fibromyalgia M79.7 Depression F32.9 Depression Type: unspecified Underweight R63.6 Insomnia G47.00 DVT prophylaxis Z29.9
== END 2020-05-23 14:47 | disposition home or self-care (01) | DRG 917 ==
LOC: ED 12:57 → SUATTDRO 14:51 → 2N 14:51

== ENCOUNTER 2020-11-28 09:35 | Inpatient (IN) ==
[2020-11-28 10:28] LABS: Appearance Urine Clear (Clear); Bacteria Urine Automated 4+ (Negative); Bilirubin Urine Negative (Negative); Blood Urine 1+ (Negative); Color Urine Dark Yellow; Epithelial Cell Urine Auto 20-30 /lpf (0-5); Glucose Urine UA Negative (Negative); Ketones Urine Trace (Negative); Leukocyte Esterase Urine Trace (Negative); Nitrite Urine Positive (Negative); Protein Urine Negative (Negative); RBC Urine Automated 0-4 /hpf (0-4); Urobilinogen Urine Negative (Negative); pH Urine 5.5 (4.5-7.5)
--- NOTE | 2020-11-28 10:30 | Emergency Department Note ---
History of Present Illness General Chief complaint: Mental Health Evaluation Stated complaint: SUICIDAL IDEATION Time Seen by Provider: 11/28/20 09:57 History of Present Illness Maximum Pain Intensity: 8 20-year-old female presents to the ED with a chief complaint of depression and suicidal ideation. The patient states that she has recently been having suicidal thoughts. She states that she feels sad and she does not like herself. She reports that she is unable to do her class work because of her fibromyalgia. She is studying [employer]. She is thinking of overdosing on her pills. She did overdose on her pills in May and was admitted here. She has had fibromyalgia since she was 15 years old. Denies other complaints. Denies any self-harm as of yet. Home Medications Medication Instructions Recorded Confirmed Type diazepam 2 mg tablet (Valium) 2 mg PO HS 11/28/20 11/28/20 History pregabalin 50 mg capsule (Lyrica) 50 mg PO BID 11/28/20 11/28/20 History Allergies Allergy/AdvReac Type Severity Reaction Status Date / Time escitalopram [From Lexapro] AdvReac Unknown "Turn Pale Verified 11/28/20 12:40 Green, Can't Concentrate, Can't Remember." Past Med/Surg History Medical History Depression Fibromyalgia Insomnia Surgical History No history of previous surgery Family History Other No history of previous surgery No known health problems Social History Smoking Status: Never smoker Hx Alcohol Use: No Hx Substance Use: No Preferred Language: Romanian Communication Ability: Effective Hydraulic Tester Required: No Beliefs That Will Affect Care: None Current Living Situation: Alone Current Living Situation Comment: lives on campus current occupational status: student Feels Safe at Home: Hesitant to Answer Assistive Devices: None Review of Systems A total of 10 systems reviewed and were otherwise negative Physical Exam Vital Signs Vital Signs - 24 hr 11/28/20 09:46 11/28/20 10:21 Temperature 36.9 C 36.9 C Temperature Source Temporal Artery Scan Oral Pulse Rate 72 Pulse Rate [Left Finger] 72 Respiratory Rate 14 14 Respiratory Effort / Characteristics Non-Labored Non-Labored Respiratory Depth Normal Normal Blood Pressure 111/74 Blood Pressure [Left Arm] 111/74 Blood Pressure Mean 86 Blood Pressure Mean [Left Arm] 86 Pulse Oximetry 98 98 Oxygen Delivery Method Room Air Room Air Sepsis Recent Fever Within 48 Hours No Sepsis New/Unexplained Change in Mental Status No Sepsis Action Taken by Nursing No Action Required CONSTITUTIONAL/VITAL SIGNS: Reviewed / noted above. GENERAL: Non-toxic in appearance. INTEGUMENTARY: Warm, dry, and Goodman. HEAD: Normocephalic. EYES: without scleral icterus or trauma. ENT/OROPHARYNX: clear and moist. LYMPHADENOPATHY/NECK: Is supple without lymphadenopathy or meningismus. RESPIRATORY: Clear to auscultation bilaterally. No increased work of breathing. CARDIOVASCULAR: Regular rate and rhythm. GI/ABDOMEN: Soft and nontender. No organomegaly or pulsatile mass. EXTREMITIES: Warm and well perfused. BACK: No CVA tenderness. NEUROLOGICAL: Intact without focal deficits. PSYCHIATRIC: Suicidal ideation MUSCULOSKELETAL: Normally developed with good muscle tone. TRIAGE NURSING DOCUMENTATION REVIEWED. Medical Decision Making Differential Diagnosis Differential includes toxic ingestions, self-mutilation, suicidal ideation, suicide attempt, depression. Medical Records Attestation: I reviewed the patient's medical records. Home Medications Current Medication List: was personally reviewed by me Laboratory Data Attestation: I reviewed the patient's lab results. Result diagrams: 11/28/20 10:44 11/28/20 10:44 Lab Results 11/28/20 11/28/20 11/28/20 Range/Units 10:03 10:03 10:44 WBC (4.8-10.8) K/uL RBC (4.2-5.4) M/uL Hgb (12.0-16.0) g/dL Hct (37-47) % MCV (80-100) fL MCH (25-34) pg MCHC (32-36) g/dL RDW Std Deviation (36.4-46.3) fL RDW Coeff of Charli (11.5-14.5) % Plt Count (130-400) K/uL MPV (7.4-10.4) fL Immature Gran % (Auto) % Neut % (Auto) % Lymph % (Auto) % Dickinson % (Auto) % Eos % (Auto) % Baso % (Auto) % Neut # (Auto) (1.4-6.5) K/uL Lymph # (Auto) (1.2-3.4) K/uL Dickinson # (Auto) (0.11-0.59) K/uL Eos # (Auto) (0-0.5) K/uL Baso # (Auto) (0-0.2) K/uL Immature Gran # (Auto) (0.00-0.02) K/uL Sodium (136-145) mmol/L Potassium (3.5-5.1) mmol/L Chloride (98-107) mmol/L Carbon Dioxide (21-32) mmol/L Anion Gap (3-11) BUN (7-18) mg/dl Creatinine (0.6-1.2) mg/dl Est Cr Clr Drug Dosing ml/min Est GFR ( Amer) ml/min Est GFR (Non-Af Amer) ml/min BUN/Creatinine Ratio (10-20) Glucose (70-99) mg/dl Calcium (8.5-10.1) mg/dl Total Bilirubin (0.2-1) mg/dl AST (15-37) U/L ALT (12-78) U/L Alkaline Phosphatase (45-117) U/L Total Protein (6.4-8.2) gm/dl Albumin (3.4-5.0) gm/dl Globulin (2.5-4.0) gm/dl Albumin/Globulin Ratio (0.9-2) TSH (0.300-4.500) uIu/ml HCG, Qual Negative (Negative) Urine Color Dark Yellow Urine Appearance Clear (Clear) Urine pH 5.5 (4.5-7.5) Ur Specific [place] 1.030 (1.000-1.030) Urine Protein Negative (Negative) Urine Glucose (UA) Negative (Negative) Urine Ketones Trace H (Negative) Urine Blood 1+ H (Negative) Urine Nitrite Positive A (Negative) Urine Bilirubin Negative (Negative) Urine Urobilinogen Negative (Negative) Ur Leukocyte Esterase Trace H (Negative) Urine WBC (Auto) 10-30 H (0-5) /hpf Urine RBC (Auto) 0-4 (0-4) /hpf U Hyaline Cast (Auto) 5-10 H (0-5) /lpf U Epithel Cells (Auto) 20-30 H (0-5) /lpf Urine Bacteria (Auto) 4+ H (Negative) Salicylates (2.8-20) mg/dl Urine Opiates Screen Neg (Neg) Ur Methadone, Qual Neg (Neg) Acetaminophen (10-30) ug/ml Urine Barbiturates Neg (Neg) Ur Phencyclidine (PCP) Neg (Neg) U Amphetamin/Meth Scrn Neg (Neg) MDMA (Ecstasy) Screen Neg (Neg) U Benzodiazepines Scrn Pos H (Neg) Ur Cocaine Metabolite Neg (Neg) U Marijuana (THC) Screen Neg (Neg) Ethyl Alcohol mg/dL (0-3) mg/dl COVID-19 Eval Order SARS-CoV-2 (PCR) (Negative) 11/28/20 11/28/20 11/28/20 Range/Units 10:44 10:44 10:44 WBC 3.55 L (4.8-10.8) K/uL RBC 4.79 (4.2-5.4) M/uL Hgb 14.8 (12.0-16.0) g/dL Hct 44.8 (37-47) % MCV 93.5 (80-100) fL MCH 30.9 (25-34) pg MCHC 33.0 (32-36) g/dL RDW Std Deviation 47.0 H (36.4-46.3) fL RDW Coeff of Charli 13.7 (11.5-14.5) % Plt Count 208 (130-400) K/uL MPV 10.4 (7.4-10.4) fL Immature Gran % (Auto) 0.0 % Neut % (Auto) 49.0 % Lymph % (Auto) 39.2 % Dickinson % (Auto) 10.1 % Eos % (Auto) 1.4 % Baso % (Auto) 0.3 % Neut # (Auto) 1.74 (1.4-6.5) K/uL Lymph # (Auto) 1.39 (1.2-3.4) K/uL Dickinson # (Auto) 0.36 (0.11-0.59) K/uL Eos # (Auto) 0.05 (0-0.5) K/uL Baso # (Auto) 0.01 (0-0.2) K/uL Immature Gran # (Auto) 0.00 (0.00-0.02) K/uL Sodium 137 (136-145) mmol/L Potassium 3.7 (3.5-5.1) mmol/L Chloride 109 H (98-107) mmol/L Carbon Dioxide 26 (21-32) mmol/L Anion Gap 2.0 L (3-11) BUN 12 (7-18) mg/dl Creatinine 0.83 (0.6-1.2) mg/dl Est Cr Clr Drug Dosing 82.4 ml/min Est GFR ( Amer) 116.8 ml/min Est GFR (Non-Af Amer) 100.8 ml/min BUN/Creatinine Ratio 14.9 (10-20) Glucose 74 (70-99) mg/dl Calcium 9.0 (8.5-10.1) mg/dl Total Bilirubin 1.0 (0.2-1) mg/dl AST 19 (15-37) U/L ALT 22 (12-78) U/L Alkaline Phosphatase 69 (45-117) U/L Total Protein 7.7 (6.4-8.2) gm/dl Albumin 3.9 (3.4-5.0) gm/dl Globulin 3.8 (2.5-4.0) gm/dl Albumin/Globulin Ratio 1.0 (0.9-2) TSH 1.010 (0.300-4.500) uIu/ml HCG, Qual (Negative) Urine Color Urine Appearance (Clear) Urine pH (4.5-7.5) Ur Specific [place] (1.000-1.030) Urine Protein (Negative) Urine Glucose (UA) (Negative) Urine Ketones (Negative) Urine Blood (Negative) Urine Nitrite (Negative) Urine Bilirubin (Negative) Urine Urobilinogen (Negative) Ur Leukocyte Esterase (Negative) Urine WBC (Auto) (0-5) /hpf Urine RBC (Auto) (0-4) /hpf U Hyaline Cast (Auto) (0-5) /lpf U Epithel Cells (Auto) (0-5) /lpf Urine Bacteria (Auto) (Negative) Salicylates < 1.7 L (2.8-20) mg/dl Urine Opiates Screen (Neg) Ur Methadone, Qual (Neg) Acetaminophen < 2 L (10-30) ug/ml Urine Barbiturates (Neg) Ur Phencyclidine (PCP) (Neg) U Amphetamin/Meth Scrn (Neg) MDMA (Ecstasy) Screen (Neg) U Benzodiazepines Scrn (Neg) Ur Cocaine Metabolite (Neg) U Marijuana (THC) Screen (Neg) Ethyl Alcohol mg/dL (0-3) mg/dl COVID-19 Eval Order SARS-CoV-2 (PCR) (Negative) 11/28/20 11/28/20 11/28/20 Range/Units 10:44 Unknown Unknown WBC (4.8-10.8) K/uL RBC (4.2-5.4) M/uL Hgb (12.0-16.0) g/dL Hct (37-47) % MCV (80-100) fL MCH (25-34) pg MCHC (32-36) g/dL RDW Std Deviation (36.4-46.3) fL RDW Coeff of Charli (11.5-14.5) % Plt Count (130-400) K/uL MPV (7.4-10.4) fL Immature Gran % (Auto) % Neut % (Auto) % Lymph % (Auto) % Dickinson % (Auto) % Eos % (Auto) % Baso % (Auto) % Neut # (Auto) (1.4-6.5) K/uL Lymph # (Auto) (1.2-3.4) K/uL [place] # (Auto) (0.11-0.59) K/uL Eos # (Auto) (0-0.5) K/uL Baso # (Auto) (0-0.2) K/uL Immature Gran # (Auto) (0.00-0.02) K/uL Sodium (136-145) mmol/L Potassium (3.5-5.1) mmol/L Chloride (98-107) mmol/L Carbon Dioxide (21-32) mmol/L Anion Gap (3-11) BUN (7-18) mg/dl Creatinine (0.6-1.2) mg/dl Est Cr Clr Drug Dosing ml/min Est GFR ( Amer) ml/min Est GFR (Non-Af Amer) ml/min BUN/Creatinine Ratio (10-20) Glucose (70-99) mg/dl Calcium (8.5-10.1) mg/dl Total Bilirubin (0.2-1) mg/dl AST (15-37) U/L ALT (12-78) U/L Alkaline Phosphatase (45-117) U/L Total Protein (6.4-8.2) gm/dl Albumin (3.4-5.0) gm/dl Globulin (2.5-4.0) gm/dl Albumin/Globulin Ratio (0.9-2) TSH (0.300-4.500) uIu/ml HCG, Qual (Negative) Urine Color Urine Appearance (Clear) Urine pH (4.5-7.5) Ur Specific [place] (1.000-1.030) Urine Protein (Negative) Urine Glucose (UA) (Negative) Urine Ketones (Negative) Urine Blood (Negative) Urine Nitrite (Negative) Urine Bilirubin (Negative) Urine Urobilinogen (Negative) Ur Leukocyte Esterase (Negative) Urine WBC (Auto) (0-5) /hpf Urine RBC (Auto) (0-4) /hpf U Hyaline Cast (Auto) (0-5) /lpf U Epithel Cells (Auto) (0-5) /lpf Urine Bacteria (Auto) (Negative) Salicylates (2.8-20) mg/dl Urine Opiates Screen (Neg) Ur Methadone, Qual (Neg) Acetaminophen (10-30) ug/ml Urine Barbiturates (Neg) Ur Phencyclidine (PCP) (Neg) U Amphetamin/Meth Scrn (Neg) MDMA (Ecstasy) Screen (Neg) U Benzodiazepines Scrn (Neg) Ur Cocaine Metabolite (Neg) U Marijuana (THC) Screen (Neg) Ethyl Alcohol mg/dL < 3.0 (0-3) mg/dl COVID-19 Eval Order Covid19 at [facility] SARS-CoV-2 (PCR) NEGATIVE (Negative) MDM Narrative Patient presents with mental health concerns as detailed above. Her vital signs are normal. Exam was unremarkable. Patient is medically cleared. She was accepted to [facility]. Impression & Plan Depression with suicidal ideation Discharge Plan Visit Data Chief Complaint: Mental Health Evaluation Stated Complaint: SUICIDAL IDEATION ED Provider: Benja Spaulding Discharge Problem: Depression with suicidal ideation Forms Stand Alone Forms: [facility], Suicide Prevention Resources Prescriptions Prescriptions: No Action pregabalin [Lyrica] 50 mg capsule 50 mg PO BID RF: 0 diazepam [Valium] 2 mg Tablet 2 mg PO HS RF: 0 Referrals Referrals: BOBBY MOCTEZUMA [Other]
[2020-11-28 10:52] LABS: Amphetamines+Metham, Urine Neg (Neg); Barbiturates, Urine Neg (Neg); Benzodiazepine, Urine Pos (Neg); Cocaine, Urine Neg (Neg); MDMA (Ecstacy), Urine Neg (Neg); Methadone, Urine Neg (Neg); Opiate, Urine Neg (Neg); Phencyclidine, Urine Neg (Neg)
[2020-11-28 10:58] LABS: Basophils # (auto) 0.01 K/uL (0-0.2); Basophils % (auto) 0.3 %; Eosinophils # (auto) 0.05 K/uL (0-0.5); Eosinophils % (auto) 1.4 %; Hematocrit (blood only) 44.8 % (37-47); Hemoglobin 14.8 g/dL (12.0-16.0); Lymphocytes # (auto) 1.39 K/uL (1.2-3.4); Lymphocytes % (auto) 39.2 %; Mean Corpuscular Hemoglobin 30.9 pg (25-34); Mean Corpuscular Volume 93.5 fL (80-100); Mean Platelet Volume 10.4 fL (7.4-10.4); Monocytes # (auto) 0.36 K/uL (0.11-0.59); Monocytes % (auto) 10.1 %; Neutrophils # (auto) 1.74 K/uL (1.4-6.5); Platelet Count 208 K/uL (130-400); RDW Coefficient of Variation 13.7 % (11.5-14.5); Red Blood Count 4.79 M/uL (4.2-5.4); White Blood Count 3.55 K/uL (4.8-10.8)
[2020-11-28 11:15] LABS: Albumin Level 3.9 gm/dl (3.4-5.0); BUN Creatinine Ratio 14.9 (10-20); Creatinine Clr Calc Pharmacy 82.4 ml/min; Est GFR (African American) 116.8 ml/min; Est GFR (Non-African American) 100.8 ml/min; Potassium 3.7 mmol/L (3.5-5.1)
[2020-11-28 11:21] LABS: Acetaminophen < 2 ug/ml (10-30); Salicylate < 1.7 mg/dl (2.8-20)
[2020-11-28 11:25] LABS: Globulin 3.8 gm/dl (2.5-4.0); Thyroid Stimulating Hormone 1.01 uIu/ml (0.300-4.500); Total Protein 7.7 gm/dl (6.4-8.2)
[2020-11-28 11:40] LABS: Pregnancy Test, Serum Negative (Negative)
[2020-11-28] MEDS ORDERED: ACETAMINOPHEN 325 MG TAB PO PRN (12:59)
[2020-11-28] MEDS ORDERED: MAGNESIUM HYDROXIDE SUSP 30 ML UDC PO PRN (12:59)
[2020-11-28] MEDS ORDERED: hydrOXYzine HCl 25 MG TAB PO PRN ×2 (12:59)
[2020-11-28] MEDS ORDERED: BISMUTH SUBSALICYLATE LIQD 236 ML PO PRN (12:59)
[2020-11-28] MEDS ORDERED: SODIUM CHLORIDE 0.65% NA SOLN 45 ML (OCEAN) PRN (12:59)
[2020-11-28] MEDS ORDERED: ALUMINUM/MAGNESIUM SUSP 30 ML UDC PO PRN (12:59)
--- NOTE | 2020-11-28 16:39 | History & Physical ---
Date of Service November 28, 2020 Impression / Recommendations Impression This is a 20-year-old female with a history of anxiety and depression is presenting with worsening signs and symptoms including suicidal ideation. She will benefit from inpatient hospitalization for purposes of safety, stabilization, and medication management. (1) Depression with suicidal ideation: The patient was admitted to the [facility] ([facility]) on every 15 minute checks (behavioral with suicide precautions for safety. The patient will participate in group, recreational, and milieu therapies and will be offered additional individual and family sessions as clinically appropriate. we will start Prozac 5 mg p.o. every morning starting tomorrow morning. In addition we will resume patient's Valium 4 mg p.o. nightly, Lyrica 50 mg p.o. twice daily Protective Factors Assessment Employed: Yes ([employer]/last day tomorrow) Psychiatric History Identifying Data JHOANA ISBELL is a 20-year-old F who currently lives in [place] with roommates, has a history of anxiety and depression, and was admitted on 11/28/20 12:59 on a 201 voluntary commitment for worsening depression and suicidal ideation. Chief Complaint "I am just overwhelmed with pain and anxiety". History of Present Illness HPI as per psychiatric caser shoe parts " Pt reports increasing depression and SI in the past month due to constant pain from fibromyalgia. She states that her SI has gotten to the point that she she does not feel safe at home. She is unable to safety plan at this time and believes she needs inpatient psych tx. Pt had a suicide attempt in Apr 2020 by overdosing and was admitted for inpatient psychiatric treatment at [facility]. She was Covid positive at that time so was treated by [address] [place] [address] psychiatry in the Covid Unit. Pt has a hx of suicide by attempted hanging as well. She has also been inpatient for psychiatric treatment at [facility]. 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 She lives in an apartment with roommates. She reports that he sleep is very poor, with only 2-3 hours of sleep per night. She also reports a decreased appetite. She reports stressors as school and inc reasing/constant pain stating, "I don't want to live the rest of my life in pain". She sees Dr Paris at [facility] for psychiatry. Dr Paris prescribes Lyrica 50 mg and Valium 2 mg HS. Pt reports that that she has been compliant with medications. She has no therapist. She works at [employer] but her last day is tomorrow. She quit her job due to mental health and medical issues. She denies D&A use. She denies hallucinations, delusions and paranoia." Upon evaluation this afternoon patient acknowledges the above information is accurate. She states that her problems started in [employer], when she did not get along with her mother who she describes as an alcoholic. Patient states that despite having siblings, she was in close to them until more recently even her identical twin sister whom she states she does not have a good relationship with to this day. Patient does endorse a good relationship with her father as well as some friends. She reports some trauma around age 15 and states she has been suffering from anxiety and depression since that time. She also identifies bullying as an inciting reason for her low self-esteem and low self-confidence which she feels are very relevant to her psychiatric problems. She identifies several suicide attempts during these teenage years as well as inpatient hospitalizations which followed those attempts. She acknowledges trying to hang herself as well as attempting to overdose. Patient states that more recently the stress of school has been overwhelming to her. She also attributes this recent hospitalization to the increasing stress of her fibromyalgia diagnosis of the pain that it causes her. She is agreeable to treatment with medications to target her anxiety and depression. She is not currently enrolled in any therapy services at this time. Manic and psychotic symptoms denied. Past Psychiatric History Current Psychiatric Diagnosis: Depression Allergies Allergy/AdvReac Type Severity Reaction Status Date / Time escitalopram [From Lexapro] AdvReac Unknown "Turn Pale Verified 11/28/20 12:40 Green, Can't Concentrate, Can't Remember." Home Medications Medication Instructions Recorded Confirmed Type diazepam 2 mg tablet (Valium) 2 mg PO HS 11/28/20 11/28/20 History norethindrone 1 mg-ethinyl 1 tab PO DAILY 11/28/20 11/28/20 History estradiol 20 mcg (21)-iron 75 mg (7) tablet (June FE 04/12 ()) pregabalin 50 mg capsule (Lyrica) 50 mg PO BID 11/28/20 11/28/20 History Family History Family History of: Doesn't Know Alcohol History Hx of Alcohol Use Over the Past 12 Months: No AUDIT Total Score: 0 Smoking Use Have You Smoked or Used Tobacco Products in the Last 30 Days: No Smoking Status: Never smoker Substance History Hx of Prescription Med Misuse Over the Past 12 Months: No Hx of Over the Counter Med Misuse Over the Past 12 Months: No Hx of Inhalent Misuse Over the Past 12 Months: No Hx of Organic Substance Use Over the Past 12 Months: No Hx of Illegal Substances/Street Drug Use Over Past 12 Months: No Problems as a Result of Past Substance Use: None Identified Personal History Living Arrangements: Apartment Beliefs That Will Affect Care: None Patient History Medical History Depression Fibromyalgia Insomnia Surgical History No history of previous surgery Family History Other No history of previous surgery No known health problems Social History Smoking Status: Never smoker Hx Alcohol Use: No Hx Substance Use: No Preferred Language: Khmer Communication Ability: Effective Regional Property Manager Required: No Beliefs That Will Affect Care: None Current Living Situation: Alone Current Living Situation Comment: lives on campus current occupational status: student Feels Safe at Home: Hesitant to Answer Assistive Devices: Glasses Review of Systems Review of Systems: All systems reviewed & are unremarkable except as noted in HPI & below Physical Exam Psychiatric: Orientation: alert and oriented x 3 Apperance: appropriately dressed Eye Contact: good eye contact Motor Behavior: no abnormal motor movements Speech: normal rate/rhythm/volume of speech Affect: + depressed affect and + anxious affect Mood: + depressed mood, + anxious mood and + dysphoric mood Thought Process: goal directed thought process and + concrete thought process Thought Content: + hopelessness, + worthlessness, + guilt and + self deprecation Suicidal Thoughts: + reports suicidal thoughts Homicidal Thoughts: denies homicidal thoughts Hallucinations: no auditory hallucinations and no visual hallucinations Cognition: recent memory grossly intact Estimated Intelligence: average estimated intelligence Insight: + poor insight Judgement: + fair judgement Vital Signs (Past 24 Hours): Last Vital Signs Temp 36.9 C 11/28/20 14:30 Pulse 73 11/28/20 14:30 Resp 16 11/28/20 14:30 BP 112/72 11/28/20 14:30 Pulse Ox 98 11/28/20 10:21 Results & Data ([facility]) Laboratory Results Laboratory Results - last 24 hr 11/28/20 11/28/20 11/28/20 10:03 10:03 10:03 WBC RBC Hgb Hct MCV MCH MCHC RDW Std Deviation RDW Coeff of Charli Plt Count MPV Immature Gran % (Auto) Neut % (Auto) Lymph % (Auto) [place] % (Auto) Eos % (Auto) Baso % (Auto) Neut # (Auto) Lymph # (Auto) [place] # (Auto) Eos # (Auto) Baso # (Auto) Immature Gran # (Auto) Sodium Potassium Chloride Carbon Dioxide Anion Gap BUN Creatinine Est Cr Clr Drug Dosing Est GFR ( Amer) Est GFR (Non-Af Amer) BUN/Creatinine Ratio Glucose Calcium Total Bilirubin AST ALT Alkaline Phosphatase Total Protein Albumin Globulin Albumin/Globulin Ratio TSH HCG, Qual Urine Color Dark Yellow Urine Appearance Clear Urine pH 5.5 Ur Specific [place] 1.030 Urine Protein Negative Urine Glucose (UA) Negative Urine Ketones Trace H Urine Blood 1+ H Urine Nitrite Positive A Urine Bilirubin Negative Urine Urobilinogen Negative Ur Leukocyte Esterase Trace H Urine WBC (Auto) 10-30 H Urine RBC (Auto) 0-4 U Hyaline Cast (Auto) 5-10 H U Epithel Cells (Auto) 20-30 H Urine Bacteria (Auto) 4+ H Salicylates Urine Opiates Screen Neg Ur Methadone, Qual Neg Acetaminophen Urine Barbiturates Neg Ur Phencyclidine (PCP) Neg U Amphetamin/Meth Scrn Neg MDMA (Ecstasy) Screen Neg U OH-Alprazolam Confrm Pending U Benzodiazepines Scrn Pos H 7-Amino Clonazepam Pending Ur Nordiazepam Confirm Pending U OH-ethylflurazepam Pending U Lorazepam Cnf GC/MS Pending U Oxazepam Confm GC/MS Pending Ur Temazepam Confirm Pending U OH-Triazolam Confirm Pending U OH-Midazolam Confirm Pending Ur Cocaine Metabolite Neg U Marijuana (THC) Screen Neg Drug Screen Comment Pending Ethyl Alcohol mg/dL COVID-19 Eval Order SARS-CoV-2 (PCR) 11/28/20 11/28/20 11/28/20 10:44 10:44 10:44 WBC 3.55 L RBC 4.79 Hgb 14.8 Hct 44.8 MCV 93.5 MCH 30.9 MCHC 33.0 RDW Std Deviation 47.0 H RDW Coeff of Charli 13.7 Plt Count 208 MPV 10.4 Immature Gran % (Auto) 0.0 Neut % (Auto) 49.0 Lymph % (Auto) 39.2 [place] % (Auto) 10.1 Eos % (Auto) 1.4 Baso % (Auto) 0.3 Neut # (Auto) 1.74 Lymph # (Auto) 1.39 [place] # (Auto) 0.36 Eos # (Auto) 0.05 Baso # (Auto) 0.01 Immature Gran # (Auto) 0.00 Sodium 137 Potassium 3.7 Chloride 109 H Carbon Dioxide 26 Anion Gap 2.0 L BUN 12 Creatinine 0.83 Est Cr Clr Drug Dosing 82.4 Est GFR ( Amer) 116.8 Est GFR (Non-Af Amer) 100.8 BUN/Creatinine Ratio 14.9 Glucose 74 Calcium 9.0 Total Bilirubin 1.0 AST 19 ALT 22 Alkaline Phosphatase 69 Total Protein 7.7 Albumin 3.9 Globulin 3.8 Albumin/Globulin Ratio 1.0 TSH 1.010 HCG, Qual Negative Urine Color Urine Appearance Urine pH Ur Specific [place] Urine Protein Urine Glucose (UA) Urine Ketones Urine Blood Urine Nitrite Urine Bilirubin Urine Urobilinogen Ur Leukocyte Esterase Urine WBC (Auto) Urine RBC (Auto) U Hyaline Cast (Auto) U Epithel Cells (Auto) Urine Bacteria (Auto) Salicylates Urine Opiates Screen Ur Methadone, Qual Acetaminophen Urine Barbiturates Ur Phencyclidine (PCP) U Amphetamin/Meth Scrn MDMA (Ecstasy) Screen U OH-Alprazolam Confrm U Benzodiazepines Scrn 7-Amino Clonazepam Ur Nordiazepam Confirm U OH-ethylflurazepam U Lorazepam Cnf GC/MS U Oxazepam Confm GC/MS Ur Temazepam Confirm U OH-Triazolam Confirm U OH-Midazolam Confirm Ur Cocaine Metabolite U Marijuana (THC) Screen Drug Screen Comment Ethyl Alcohol mg/dL COVID-19 Eval Order SARS-CoV-2 (PCR) 11/28/20 11/28/20 11/28/20 10:44 10:44 Unknown WBC RBC Hgb Hct MCV MCH MCHC RDW Std Deviation RDW Coeff of Charli Plt Count MPV Immature Gran % (Auto) Neut % (Auto) Lymph % (Auto) [place] % (Auto) Eos % (Auto) Baso % (Auto) Neut # (Auto) Lymph # (Auto) [place] # (Auto) Eos # (Auto) Baso # (Auto) Immature Gran # (Auto) Sodium Potassium Chloride Carbon Dioxide Anion Gap BUN Creatinine Est Cr Clr Drug Dosing Est GFR ( Amer) Est GFR (Non-Af Amer) BUN/Creatinine Ratio Glucose Calcium Total Bilirubin AST ALT Alkaline Phosphatase Total Protein Albumin Globulin Albumin/Globulin Ratio TSH HCG, Qual Urine Color Urine Appearance Urine pH Ur Specific [place] Urine Protein Urine Glucose (UA) Urine Ketones Urine Blood Urine Nitrite Urine Bilirubin Urine Urobilinogen Ur Leukocyte Esterase Urine WBC (Auto) Urine RBC (Auto) U Hyaline Cast (Auto) U Epithel Cells (Auto) Urine Bacteria (Auto) Salicylates < 1.7 L Urine Opiates Screen Ur Methadone, Qual Acetaminophen < 2 L Urine Barbiturates Ur Phencyclidine (PCP) U Amphetamin/Meth Scrn MDMA (Ecstasy) Screen U OH-Alprazolam Confrm U Benzodiazepines Scrn 7-Amino Clonazepam Ur Nordiazepam Confirm U OH-ethylflurazepam U Lorazepam Cnf GC/MS U Oxazepam Confm GC/MS Ur Temazepam Confirm U OH-Triazolam Confirm U OH-Midazolam Confirm Ur Cocaine Metabolite U Marijuana (THC) Screen Drug Screen Comment Ethyl Alcohol mg/dL < 3.0 COVID-19 Eval Order Covid19 at [facility] SARS-CoV-2 (PCR) 11/28/20 Unknown WBC RBC Hgb Hct MCV MCH MCHC RDW Std Deviation RDW Coeff of Charli Plt Count MPV Immature Gran % (Auto) Neut % (Auto) Lymph % (Auto) [place] % (Auto) Eos % (Auto) Baso % (Auto) Neut # (Auto) Lymph # (Auto) [place] # (Auto) Eos # (Auto) Baso # (Auto) Immature Gran # (Auto) Sodium Potassium Chloride Carbon Dioxide Anion Gap BUN Creatinine Est Cr Clr Drug Dosing Est GFR ( Amer) Est GFR (Non-Af Amer) BUN/Creatinine Ratio Glucose Calcium Total Bilirubin AST ALT Alkaline Phosphatase Total Protein Albumin Globulin Albumin/Globulin Ratio TSH HCG, Qual Urine Color Urine Appearance Urine pH Ur Specific [place] Urine Protein Urine Glucose (UA) Urine Ketones Urine Blood Urine Nitrite Urine Bilirubin Urine Urobilinogen Ur Leukocyte Esterase Urine WBC (Auto) Urine RBC (Auto) U Hyaline Cast (Auto) U Epithel Cells (Auto) Urine Bacteria (Auto) Salicylates Urine Opiates Screen Ur Methadone, Qual Acetaminophen Urine Barbiturates Ur Phencyclidine (PCP) U Amphetamin/Meth Scrn MDMA (Ecstasy) Screen U OH-Alprazolam Confrm U Benzodiazepines Scrn 7-Amino Clonazepam Ur Nordiazepam Confirm U OH-ethylflurazepam U Lorazepam Cnf GC/MS U Oxazepam Confm GC/MS Ur Temazepam Confirm U OH-Triazolam Confirm U OH-Midazolam Confirm Ur Cocaine Metabolite U Marijuana (THC) Screen Drug Screen Comment Ethyl Alcohol mg/dL COVID-19 Eval Order SARS-CoV-2 (PCR) NEGATIVE Current Inpatient Medications Current Inpatient Medications: Current Inpatient Medications Acetaminophen (Acetaminophen 325 Mg Tab) 650 mg PO Q4H PRN PRN Reason: Headache or Minor Fever Stop: 12/28/20 12:58 Al Hydrox/Mg Hydrox/Simethicone (Aluminum/Magnesium Susp 30 Ml Udc) 30 ml PO Q4 H PRN PRN Reason: GI Upset Stop: 12/28/20 12:58 Bismuth Subsalicylate (Bismuth Subsalicylate Liqd 236 Ml) 15 ml PO PRN PRN PRN Reason: Loose Stool Stop: 12/28/20 12:58 Hydroxyzine HCl (Hydroxyzine Hcl 25 Mg Tab) 50 mg PO HSZ PRN PRN Reason: Insomnia Stop: 12/28/20 12:58 Hydroxyzine HCl (Hydroxyzine Hcl 25 Mg Tab) 25 mg PO Q4H PRN PRN Reason: Anxiety Stop: 12/28/20 12:58 Magnesium Hydroxide (Magnesium Hydroxide Susp 30 Ml Udc) 30 ml PO DAILY PRN PRN Reason: Constipation Stop: 12/28/20 12:58 Norgestimate (Norgestimate/Ethinyl Estrad 0.25/0.035mg Dspk) 1 tab PO DAILY GAYATHRI; Protocol Stop: 12/28/20 14:44 Sodium Chloride (Sodium Chloride 0.65% Na Soln 45 Ml ([place])) 1 - 2 sprays NA PRN PRN PRN Reason: Nasal Dryness/Congestion Stop: 12/28/20 12:58
[2020-11-28] MEDS: NORGESTIMATE/ETHINYL ESTRAD 0.25/0.035MG DSPK PO SCH (17:13)
[2020-11-28] MEDS: PREGABALIN 50 MG CAP PO SCH (21:06)
[2020-11-28] MEDS ORDERED: diazePAM 2 MG TABLET PO SCH (22:00)
[2020-11-28] MEDS: diazePAM 2 MG TABLET PO SCH (22:19)
[2020-11-29] MEDS: PREGABALIN 50 MG CAP PO SCH ×2 (09:16→21:37)
[2020-11-29] MEDS: FLUoxetine HCL 20 MG/5 ML 120ML BTL PO SCH (09:16)
[2020-11-29] MEDS ORDERED: LORazepam 1 MG TAB PO STA (10:22)
--- NOTE | 2020-11-29 11:22 | Psychiatric Progress Note ---
Date of Service November 29, 2020 Impression / Recommendations Impression This is a 20-year-old female with a history of anxiety and depression is presenting with worsening signs and symptoms including suicidal ideation. She will benefit from inpatient hospitalization for purposes of safety, stabilization, and medication management. (1) Depression with suicidal ideation: The patient was admitted to the [facility] ([facility]) on every 15 minute checks (behavioral with suicide precautions for safety. The patient will participate in group, recreational, and milieu therapies and will be offered additional individual and family sessions as clinically appropriate. 11/29/2020ontinue Prozac 5 mg p.o. every morning. Will likely increase to 10 mg in the next coming days. Continue Lyrica and Valium. 11/28/2020we will start Prozac 5 mg p.o. every morning starting tomorrow morning. In addition we will resume patient's Valium 4 mg p.o. nightly, Lyrica 50 mg p.o. twice daily Protective Factors Assessment Employed: Yes ([employer]/last day tomorrow) Interval History Chief Complaint "I have fibromyalgia pain". Review of Systems Sleep Information Total Hours of Sleep: 7 Meal Information Percent Meal Consumed - Breakfast: 50 Percent Meal Consumed - Dinner: 85 Subjective Subjective Patient seen, chart reviewed and case discussed with treatment team, nursing and social work. Patient reports a good night of sleep and good appetite. No side effects reported or observed. Patient did display low mood today, although was interactive with group and with peers. Upon assessing the patient, she was tearful and stated that her chest was hurting and her thighs were hurting due to her fibromyalgia. She was offered 1 mg of Ativan p.o. which she accepted. I spent 30 minutes with the patient, 50% of which was dedicated to counselling and coordination of care. Physical Exam Psychiatric Orientation: alert and oriented x 3 Apperance: appropriately dressed Eye Contact: good eye contact Motor Behavior: no abnormal motor movements Speech: normal rate/rhythm/volume of speech Affect: + depressed affect and + anxious affect Mood: + depressed mood, + anxious mood and + dysphoric mood Thought Process: goal directed thought process and + concrete thought process Thought Content: + hopelessness, + worthlessness, + guilt and + self deprecation Suicidal Thoughts: + reports suicidal thoughts Homicidal Thoughts: denies homicidal thoughts Hallucinations: no auditory hallucinations and no visual hallucinations Cognition: recent memory grossly intact Estimated Intelligence: average estimated intelligence Insight: + poor insight Judgement: + fair judgement Vital Signs (Past 24 Hours) Last Vital Signs Temp 36.8 C 11/29/20 06:56 Pulse 99 H 11/29/20 06:56 Resp 18 11/29/20 06:56 BP 100/53 L 11/29/20 06:56 Pulse Ox 98 11/28/20 10:21 Results & Data ([facility]) Laboratory Results Laboratory Results - last 24 hr 11/28/20 11/28/20 11/28/20 10:44 10:44 10:44 Total Bilirubin 1.0 Alkaline Phosphatase 69 Total Protein 7.7 Globulin 3.8 Albumin/Globulin Ratio 1.0 TSH 1.010 HCG, Qual Negative Salicylates < 1.7 L Acetaminophen < 2 L SARS-CoV-2 (PCR) 11/28/20 Unknown Total Bilirubin Alkaline Phosphatase Total Protein Globulin Albumin/Globulin Ratio TSH HCG, Qual Salicylates Acetaminophen SARS-CoV-2 (PCR) NEGATIVE Current Inpatient Medications Current Inpatient Medications: Current Inpatient Medications Acetaminophen (Acetaminophen 325 Mg Tab) 650 mg PO Q4H PRN PRN Reason: Headache or Minor Fever Stop: 12/28/20 12:58 Al Hydrox/Mg Hydrox/Simethicone (Aluminum/Magnesium Susp 30 Ml Udc) 30 ml PO Q4H PRN PRN Reason: GI Upset Stop: 12/28/20 12:58 Bismuth Subsalicylate (Bismuth Subsalicylate Liqd 236 Ml) 15 ml PO PRN PRN PRN Reason: Loose Stool Stop: 12/28/20 12:58 Diazepam (Diazepam 2 Mg Tablet) 4 mg PO HS GAYATHRI Stop: 12/28/20 21:59 Last Admin: 11/28/20 22:19 Dose: 4 mg Documented by: Fluoxetine HCl (Fluoxetine Hcl 20 Mg/5 Ml 120ml Btl) 5 mg PO QAM GAYATHRI Stop: 12/29/20 08:59 Last Admin: 11/29/20 09:16 Dose: 5 mg Documented by: Hydroxyzine HCl (Hydroxyzine Hcl 25 Mg Tab) 50 mg PO HSZ PRN PRN Reason: Insomnia Stop: 12/28/20 12:58 Hydroxyzine HCl (Hydroxyzine Hcl 25 Mg Tab) 25 mg PO Q4H PRN PRN Reason: Anxiety Stop: 12/28/20 12:58 Magnesium Hydroxide (Magnesium Hydroxide Susp 30 Ml Udc) 30 ml PO DAILY PRN PRN Reason: Constipation Stop: 12/28/20 12:58 Nitrofurantoin Macrocrystals (Nitrofurantoin Monohydrate 100 Mg Cap) 100 mg PO BID GAYATHRI; Protocol Stop: 12/04/20 10:14 Norgestimate (Norgestimate/Ethinyl Estrad 0.25/0.035mg Dspk) 1 tab PO DAILY GAYATHRI; Protocol Stop: 12/28/20 14:44 Last Admin: 11/28/20 17:13 Dose: 1 tab Documented by: Pregabalin (Pregabalin 50 Mg Cap) 50 mg PO BID GAYATHRI Stop: 12/28/20 20:59 Last Admin: 11/29/20 09:16 Dose: 50 mg Documented by: Sodium Chloride (Sodium Chloride 0.65% Na Soln 45 Ml ([place])) 1 - 2 sprays NA PRN PRN PRN Reason: Nasal Dryness/Congestion Stop: 12/28/20 12:58 Mental Health & Subst Abuse Tx Therapist Name of Therapist: None [employer] Director Name of [employer] Director: None Post Discharge Appointments Primary Care Physician Name Of Family Doctor: None
[2020-11-29] MEDS: NORGESTIMATE/ETHINYL ESTRAD 0.25/0.035MG DSPK PO SCH (13:02)
[2020-11-29] MEDS: NITROFURANTOIN MONOHYDRATE 100 MG CAP PO SCH ×2 (13:02→21:36)
[2020-11-29] MEDS: diazePAM 2 MG TABLET PO SCH (21:37)
[2020-11-30 08:11] LABS: 7-Aminoclonaz, Confirm NEGATIVE ng/mL (<25); Hydro-Alp Ur, GC/MS NEGATIVE ng/mL (<25); Hydroxyethylflurazepam, Conf NEGATIVE ng/mL (<50); Hydroxymidazolam Ur, GC/MS NEGATIVE ng/mL (<50); Hydroxytriazolam NEGATIVE ng/mL (<50); Lorazepam, Ur GC/MS NEGATIVE ng/mL (<50); Nordiazepam, Confirm 387 ng/mL (<50); Oxazepam Ur, GC/MS 612 ng/mL (<50); Temazepam, Confirm 932 ng/mL (<50)
[2020-11-30] MEDS: NITROFURANTOIN MONOHYDRATE 100 MG CAP PO SCH ×2 (09:34→21:12)
[2020-11-30] MEDS: FLUoxetine HCL 20 MG/5 ML 120ML BTL PO SCH (09:34)
[2020-11-30] MEDS: PREGABALIN 50 MG CAP PO SCH ×2 (09:34→21:12)
--- NOTE | 2020-11-30 16:28 | Psychiatric Progress Note ---
Date of Service November 30, 2020 Impression / Recommendations Impression This is a 20-year-old female with a history of anxiety and depression is presenting with worsening signs and symptoms including suicidal ideation. She will benefit from inpatient hospitalization for purposes of safety, stabilization, and medication management. (1) Depression with suicidal ideation: The patient was admitted to the [facility] ([facility] mental health unit) on every 15 minute checks (behavioral with suicide precautions for safety. The patient will participate in group, recreational, and milieu therapies and will be offered additional individual and family sessions as clinically appropriate. 11/30/2020will increase Prozac to 10 mg p.o. every morning. We will continue Lyrica at the current dose. Will decrease Valium dose to 3 mg p.o. nightly 11/29/2020ontinue Prozac 5 mg p.o. every morning. Will likely increase to 10 mg in the next coming days. Continue Lyrica and Valium. 11/28/2020we will start Prozac 5 mg p.o. every morning starting tomorrow morning. In addition we will resume patient's Valium 4 mg p.o. nightly, Lyrica 50 mg p.o. twice daily Protective Factors Assessment Employed: Yes ([employer]/last day tomorrow) Interval History Chief Complaint "I like it here I am starting to do well in groups". Review of Systems Sleep Information Total Hours of Sleep: 8 Meal Information Percent Meal Consumed - Breakfast: 50 Percent Meal Consumed - Lunch: 80 Percent Meal Consumed - Dinner: 75 Subjective Subjective Patient seen, chart reviewed and case discussed with treatment team, nursing and social work. Patient reports a good night of sleep and strong appetite. No side effects reported or observed. She is agreeable to increase the dose of Prozac to 10 mg p.o. every morning Regarding mood, patient reports some improvement which they attribute to the medications as well as the therapy they have received on the unit. I spent 30 minutes with the patient, 50% of which was dedicated to counselling and coordination of care. Physical Exam Psychiatric Orientation: alert and oriented x 3 Apperance: appropriately dressed Eye Contact: good eye contact Motor Behavior: no abnormal motor movements Speech: normal rate/rhythm/volume of speech Affect: + depressed affect and + anxious affect Mood: + depressed mood, + anxious mood and + dysphoric mood Thought Process: goal directed thought process and + concrete thought process Thought Content: + hopelessness, + worthlessness, + guilt and + self deprecation Suicidal Thoughts: + reports suicidal thoughts Homicidal Thoughts: denies homicidal thoughts Hallucinations: no auditory hallucinations and no visual hallucinations Cognition: recent memory grossly intact Estimated Intelligence: average estimated intelligence Insight: + poor insight Judgement: + fair judgement Vital Signs (Past 24 Hours) Last Vital Signs Temp 36.7 C 11/30/20 06:00 Pulse 102 H 11/30/20 06:26 Resp 16 11/30/20 06:00 BP 123/66 11/30/20 06:26 Pulse Ox 98 11/28/20 10:21 Results & Data ([facility]) Laboratory Results Laboratory Results - last 24 hr 11/28/20 10:03 U OH-Alprazolam Confrm NEGATIVE 7-Amino Clonazepam NEGATIVE Ur Nordiazepam Confirm 387 H U OH-ethylflurazepam NEGATIVE U Lorazepam Cnf GC/MS NEGATIVE U Oxazepam Confm GC/MS 612 H Ur Temazepam Confirm 932 H U OH-Triazolam Confirm NEGATIVE U OH-Midazolam Confirm NEGATIVE Drug Screen Comment SEE NOTE Current Inpatient Medications Current Inpatient Medications: Current Inpatient Medications Acetaminophen (Acetaminophen 325 Mg Tab) 650 mg PO Q4H PRN PRN Reason: Headache or Minor Fever Stop: 12/28/20 12:58 Last Admin: 11/30/20 15:22 Dose: 650 mg Documented by: Al Hydrox/Mg Hydrox/Simethicone (Aluminum/Magnesium Susp 30 Ml Udc) 30 ml PO Q4H PRN PRN Reason: GI Upset Stop: 12/28/20 12:58 Bismuth Subsalicylate (Bismuth Subsalicylate Liqd 236 Ml) 15 ml PO PRN PRN PRN Reason: Loose Stool Stop: 12/28/20 12:58 Diazepam (Diazepam 2 Mg Tablet) 4 mg PO HS GAYATHRI Stop: 12/28/20 21:59 Last Admin: 11/29/20 21:37 Dose: 4 mg Documented by: Fluoxetine HCl (Fluoxetine Hcl 10 Mg Cap) 10 mg PO QAM GAYATHRI Stop: 12/31/20 08:59 Hydroxyzine HCl (Hydroxyzine Hcl 25 Mg Tab) 50 mg PO HSZ PRN PRN Reason: Insomnia Stop: 12/28/20 12:58 Hydroxyzine HCl (Hydroxyzine Hcl 25 Mg Tab) 25 mg PO Q4H PRN PRN Reason: Anxiety Stop: 12/28/20 12:58 Magnesium Hydroxide (Magnesium Hydroxide Susp 30 Ml Udc) 30 ml PO DAILY PRN PRN Reason: Constipation Stop: 12/28/20 12:58 Nitrofurantoin Macrocrystals (Nitrofurantoin Monohydrate 100 Mg Cap) 100 mg PO BID GAYATHRI; Protocol Stop: 12/04/20 10:14 Last Admin: 11/30/20 09:34 Dose: 100 mg Documented by: Norgestimate (Norgestimate/Ethinyl Estrad 0.25/0.035mg Dspk) 1 tab PO HS GAYATHRI; Protocol Stop: 12/30/20 21:59 Pregabalin (Pregabalin 50 Mg Cap) 50 mg PO BID GAYATHRI Stop: 12/28/20 20:59 Last Admin: 11/30/20 09:34 Dose: 50 mg Documented by: Sodium Chloride (Sodium Chloride 0.65% Na Soln 45 Ml ([place])) 1 - 2 sprays NA PRN PRN PRN Reason: Nasal Dryness/Congestion Stop: 12/28/20 12:58 Mental Health & Subst Abuse Tx Psychiatrist Name of Psychiatrist: JEREMÍAS Paris Psychiatrist's Date of Appointment with Psychiatrist: 12/04/20 Time of Appointment with Psychiatrist: 1:30p.m Psychiatric Appointment Comment: [address] [place] [id number] Therapist Name of Therapist: None Dog Licenser Name of Dog Licenser: None Post Discharge Appointments Primary Care Physician Name Of Family Doctor: None
[2020-11-30] MEDS: NORGESTIMATE/ETHINYL ESTRAD 0.25/0.035MG DSPK PO SCH (21:11)
[2020-11-30] MEDS: diazePAM 2 MG TABLET PO SCH (22:46)
[2020-12-01] MEDS: PREGABALIN 50 MG CAP PO SCH ×2 (08:42→21:18)
[2020-12-01] MEDS: NITROFURANTOIN MONOHYDRATE 100 MG CAP PO SCH ×2 (08:42→21:17)
[2020-12-01] MEDS: FLUoxetine HCL 10 MG CAP PO SCH (08:42)
--- NOTE | 2020-12-01 14:29 | Psychiatric Progress Note ---
Date of Service December 01, 2020 Impression / Recommendations Impression This is a 20-year-old female with a history of anxiety and depression is presenting with worsening signs and symptoms including suicidal ideation. She will benefit from inpatient hospitalization for purposes of safety, stabilization, and medication management. (1) Depression with suicidal ideation: The patient was admitted to the [facility] ([facility] mental health unit) on every 15 minute checks (behavioral with suicide precautions for safety. The patient will participate in group, recreational, and milieu therapies and will be offered additional individual and family sessions as clinically appropriate. 12/01/2020we will continue with the current regimen for now. Patient making incremental progress. 11/30/2020will increase Prozac to 10 mg p.o. every morning. We will continue Lyrica at the current dose. Will decrease Valium dose to 3 mg p.o. nightly 11/29/2020ontinue Prozac 5 mg p.o. every morning. Will likely increase to 10 mg in the next coming days. Continue Lyrica and Valium. 11/28/2020we will start Prozac 5 mg p.o. every morning starting tomorrow morning. In addition we will resume patient's Valium 4 mg p.o. nightly, Lyrica 50 mg p.o. twice daily Protective Factors Assessment Employed: Yes ([employer]/last day tomorrow) Interval History Chief Complaint "I am feeling okay". Review of Systems Sleep Information Total Hours of Sleep: 6.5 Meal Information Percent Meal Consumed - Breakfast: 50 Percent Meal Consumed - Lunch: 90 Percent Meal Consumed - Dinner: 40 Subjective Subjective Patient seen, chart reviewed and case discussed with treatment team, nursing and social work. Patient reports a good night of sleep and decent appetite. No side effects reported or observed. Reports liking the way Prozac makes her feel. Regarding mood, patient reports some improvement which they attribute to the medications as well as the therapy they have received on the unit. I spent 30 minutes with the patient, 50% of which was dedicated to counselling and coordination of care. Physical Exam Psychiatric Orientation: alert and oriented x 3 Apperance: appropriately dressed Eye Contact: good eye contact Motor Behavior: no abnormal motor movements Speech: normal rate/rhythm/volume of speech Affect: + depressed affect and + anxious affect Mood: + depressed mood, + anxious mood and + dysphoric mood Thought Process: goal directed thought process and + concrete thought process Thought Content: + hopelessness, + worthlessness, + guilt and + self deprecation Suicidal Thoughts: + reports suicidal thoughts Homicidal Thoughts: denies homicidal thoughts Hallucinations: no auditory hallucinations and no visual hallucinations Cognition: recent memory grossly intact Estimated Intelligence: average estimated intelligence Insight: + poor insight Judgement: + fair judgement Vital Signs (Past 24 Hours) Last Vital Signs Temp 36.7 C 12/01/20 06:36 Pulse 76 12/01/20 06:37 Resp 16 12/01/20 06:36 BP 123/82 12/01/20 06:37 Pulse Ox 98 11/28/20 10:21 Results & Data ([facility]) Current Inpatient Medications Current Inpatient Medications: Current Inpatient Medications Acetaminophen (Acetaminophen 325 Mg Tab) 650 mg PO Q4H PRN PRN Reason: Headache or Minor Fever Stop: 12/28/20 12:58 Last Admin: 11/30/20 15:22 Dose: 650 mg Documented by: Al Hydrox/Mg Hydrox/Simethicone (Aluminum/Magnesium Susp 30 Ml Udc) 30 ml PO Q4H PRN PRN Reason: GI Upset Stop: 12/28/20 12:58 Bismuth Subsalicylate (Bismuth Subsalicylate Liqd 236 Ml) 15 ml PO PRN PRN PRN Reason: Loose Stool Stop: 12/28/20 12:58 Diazepam (Diazepam 2 Mg Tablet) 3 mg PO HS GAYATHRI Stop: 12/30/20 21:59 Last Admin: 11/30/20 22:46 Dose: 3 mg Documented by: Fluoxetine HCl (Fluoxetine Hcl 10 Mg Cap) 10 mg PO QAM GAYATHRI Stop: 12/31/20 08:59 Last Admin: 12/01/20 08:42 Dose: 10 mg Documented by: Hydroxyzine HCl (Hydroxyzine Hcl 25 Mg Tab) 50 mg PO HSZ PRN PRN Reason: Insomnia Stop: 12/28/20 12:58 Hydroxyzine HCl (Hydroxyzine Hcl 25 Mg Tab) 25 mg PO Q4H PRN PRN Reason: Anxiety Stop: 12/28/20 12:58 Magnesium Hydroxide (Magnesium Hydroxide Susp 30 Ml Udc) 30 ml PO DAILY PRN PRN Reason: Constipation Stop: 12/28/20 12:58 Nitrofurantoin Macrocrystals (Nitrofurantoin Monohydrate 100 Mg Cap) 100 mg PO BID [facility]; Protocol Stop: 12/04/20 10:14 Last Admin: 12/01/20 08:42 Dose: 100 mg Documented by: Norgestimate (Norgestimate/Ethinyl Estrad 0.25/0.035mg Dspk) 1 tab PO HS [facility]; Protocol Stop: 12/30/20 21:59 Last Admin: 11/30/20 21:11 Dose: 1 tab Documented by: Pregabalin (Pregabalin 50 Mg Cap) 50 mg PO BID GAYATHRI Stop: 12/28/20 20:59 Last Admin: 12/01/20 08:42 Dose: 50 mg Documented by: Sodium Chloride (Sodium Chloride 0.65% Na Soln 45 Ml ([place])) 1 - 2 sprays NA PRN PRN PRN Reason: Nasal Dryness/Congestion Stop: 12/28/20 12:58 Mental Health & Subst Abuse Tx Psychiatrist Name of Psychiatrist: JEREMÍAS Paris Psychiatrist's Date of Appointment with Psychiatrist: 12/04/20 Time of Appointment with Psychiatrist: 1:30p.m Psychiatric Appointment Comment: [address] [place] [phone] Therapist Name of Therapist: None Glue Line Operator Name of Glue Line Operator: None Post Discharge Appointments Primary Care Physician Name Of Family Doctor: None
[2020-12-01] MEDS: NORGESTIMATE/ETHINYL ESTRAD 0.25/0.035MG DSPK PO SCH (21:18)
[2020-12-01] MEDS: diazePAM 2 MG TABLET PO SCH (22:51)
[2020-12-02] MEDS: FLUoxetine HCL 10 MG CAP PO SCH (09:41)
[2020-12-02] MEDS: PREGABALIN 50 MG CAP PO SCH ×2 (09:41→21:49)
[2020-12-02] MEDS: NITROFURANTOIN MONOHYDRATE 100 MG CAP PO SCH ×2 (09:41→21:49)
--- NOTE | 2020-12-02 18:52 | Psychiatric Progress Note ---
Date of Service December 02, 2020 Impression / Recommendations Impression as per Dr. Bernard: This is a 20-year-old female with a history of anxiety and depression is presenting with worsening signs and symptoms including suicidal ideation. She will benefit from inpatient hospitalization for purposes of safety, stabilization, and medication management. 12/02/20--improving (1) Depression with suicidal ideation: 12/02/20--continue current meds and tx plan. Reviewed care by Dr. Bernard (italics) The patient was admitted to the [facility] ([facility] health unit) on every 15 minute checks (behavioral with suicide precautions for safety. The patient will participate in group, recreational, and milieu therapies and will be offered additional individual and family sessions as clinically appropriate. 12/01/2020we will continue with the current regimen for now. Patient making incremental progress. 11/30/2020will increase Prozac to 10 mg p.o. every morning. We will continue Lyrica at the current dose. Will decrease Valium dose to 3 mg p.o. nightly 11/29/2020ontinue Prozac 5 mg p.o. every morning. Will likely increase to 10 mg in the next coming days. Continue Lyrica and Valium. 11/28/2020we will start Prozac 5 mg p.o. every morning starting tomorrow morning. In addition we will resume patient's Valium 4 mg p.o. nightly, Lyrica 50 mg p.o. twice daily Protective Factors Assessment Employed: Yes ([employer]/last day tomorrow) Interval History Identifying Information 20 yo female, outpatient of Dr. Paris, admit 11/28 on 201 commitment for depression. Chief Complaint "I'm just tired from the fibro you know". Review of Systems Sleep Information Total Hours of Sleep: 6 Meal Information Percent Meal Consumed - Breakfast: 30 Percent Meal Consumed - Lunch: 100 Percent Meal Consumed - Dinner: 65 Subjective Subjective Patient was seen & assessed and interval progress reviewed with nursing and social work. had some difficulty staying awake in group but participating overall. Denies medication related side effects. Difficult for her to perform deep breathing exercises (patient initiated as coping skill) so reviewed body scan. Physical Exam Psychiatric Orientation: alert and oriented x 3 Apperance: appropriately dressed Eye Contact: good eye contact Motor Behavior: no abnormal motor movements Speech: normal rate/rhythm/volume of speech Affect: + depressed affect Mood: + depressed mood Thought Process: goal directed thought process Thought Content: reality based without delusions Suicidal Thoughts: denies suicidal thoughts Homicidal Thoughts: denies homicidal thoughts Hallucinations: no auditory hallucinations and no visual hallucinations Cognition: recent memory grossly intact Estimated Intelligence: average estimated intelligence Insight: + limited insight Judgement: + fair judgement Vital Signs (Past 24 Hours) Last Vital Signs Temp 36.9 C 12/02/20 06:28 Pulse 101 H 12/02/20 06:28 Resp 16 12/02/20 06:28 BP 129/68 12/02/20 06:28 Pulse Ox 98 11/28/20 10:21 Results & Data ([facility]) Current Inpatient Medications Current Inpatient Medications: Current Inpatient Medications Acetaminophen (Acetaminophen 325 Mg Tab) 650 mg PO Q4H PRN PRN Reason: Headache or Minor Fever Stop: 12/28/20 12:58 Last Admin: 11/30/20 15:22 Dose: 650 mg Documented by: Al Hydrox/Mg Hydrox/Simethicone (Aluminum/Magnesium Susp 30 Ml Udc) 30 ml PO Q4H PRN PRN Reason: GI Upset Stop: 12/28/20 12:58 Bismuth Subsalicylate (Bismuth Subsalicylate Liqd 236 Ml) 15 ml PO PRN PRN PRN Reason: Loose Stool Stop: 12/28/20 12:58 Diazepam (Diazepam 2 Mg Tablet) 3 mg PO HS GAYATHRI Stop: 12/30/20 21:59 Last Admin: 12/01/20 22:51 Dose: 3 mg Documented by: Fluoxetine HCl (Fluoxetine Hcl 10 Mg Cap) 10 mg PO QAM GAYATHRI Stop: 12/31/20 08:59 Last Admin: 12/02/20 09:41 Dose: 10 mg Documented by: Hydroxyzine HCl (Hydroxyzine Hcl 25 Mg Tab) 50 mg PO HSZ PRN PRN Reason: Insomnia Stop: 12/28/20 12:58 Hydroxyzine HCl (Hydroxyzine Hcl 25 Mg Tab) 25 mg PO Q4H PRN PRN Reason: Anxiety Stop: 12/28/20 12:58 Magnesium Hydroxide (Magnesium Hydroxide Susp 30 Ml Udc) 30 ml PO DAILY PRN PRN Reason: Constipation Stop: 12/28/20 12:58 Nitrofurantoin Macrocrystals (Nitrofurantoin Monohydrate 100 Mg Cap) 100 mg PO BID GAYATHRI; Protocol Stop: 12/04/20 10:14 Last Admin: 12/02/20 09:41 Dose: 100 mg Documented by: Norgestimate (Norgestimate/Ethinyl Estrad 0.25/0.035mg Dspk) 1 tab PO HS GAYATHRI; Protocol Stop: 12/30/20 21:59 Last Admin: 12/01/20 21:18 Dose: 1 tab Documented by: Pregabalin (Pregabalin 50 Mg Cap) 50 mg PO BID GAYATHRI Stop: 12/28/20 20:59 Last Admin: 12/02/20 09:41 Dose: 50 mg Documented by: Sodium Chloride (Sodium Chloride 0.65% Na Soln 45 Ml ([place])) 1 - 2 sprays NA PRN PRN PRN Reason: Nasal Dryness/Congestion Stop: 12/28/20 12:58 Mental Health & Subst Abuse Tx Psychiatrist Name of Psychiatrist: JEREMÍAS Paris Psychiatrist's Date of Appointment with Psychiatrist: 12/04/20 Time of Appointment with Psychiatrist: 1:30p.m Psychiatric Appointment Comment: [address] [place] [phone] Therapist Name of Therapist: [facility] Radha Therapist's Date of Therapist Appointment: 12/07/20 Time of Therapist Appointment: 11a.m. Therapy Appointment Comment: will send link to email for telehealth Clinic Office Coordinator Name of Clinic Office Coordinator: None Post Discharge Appointments Primary Care Physician Name Of Family Doctor: None
[2020-12-02] MEDS: diazePAM 2 MG TABLET PO SCH (22:44)
[2020-12-02] MEDS: NORGESTIMATE/ETHINYL ESTRAD 0.25/0.035MG DSPK PO SCH (22:45)
[2020-12-03] MEDS: FLUoxetine HCL 10 MG CAP PO SCH (09:22)
[2020-12-03] MEDS: NITROFURANTOIN MONOHYDRATE 100 MG CAP PO SCH (09:22)
[2020-12-03] MEDS: PREGABALIN 50 MG CAP PO SCH (09:24)
--- NOTE | 2020-12-03 10:11 | Discharge Summary ---
Date of Service December 03, 2020 History of Present Illness per admitting psychiatrist Dr. Bernard: HPI as per psychiatric mental health case manager " Pt reports increasing depression and SI in the past month due to constant pain from fibromyalgia. She states that her SI has gotten to the point that she she does not feel safe at home. She is unable to safety plan at this time and believes she needs inpatient psych tx. Pt had a suicide attempt in Apr 2020 by overdosing and was admitted for inpatient psychiatric treatment at [facility]. She was Covid positive at that time so was treated by [address] [place] [address] psychiatry in the Covid Unit. Pt has a hx of suicide by attempted hanging as well. She has also been inpatient for psychiatric treatment at [facility]. 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 She lives in an apartment with roommates. She reports that he sleep is very poor, with only 2-3 hours of sleep per night. She also reports a decreased appetite. She reports stressors as school and increasing/constant pain stating, "I don't want to live the rest of my life in pain". She sees Dr Paris at [facility] for psychiatry. Dr Paris prescribes Lyrica 50 mg and Valium 2 mg HS. Pt reports that that she has been compliant with medications. She has no therapist. She works at [employer] but her last day is tomorrow. She quit her job due to mental health and medical issues. She denies D&A use. She denies hallucinations, delusions and paranoia." Upon evaluation this afternoon patient acknowledges the above information is accurate. 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 Patient states that despite having siblings, she was in close to them until more recently even her identical twin sister whom she states she does not have a good relationship with to this day. Patient does endorse a good relationship with her father as well as some friends. She reports some trauma around age 15 and states she has been suffering from anxiety and depression since that time. She also identifies bullying as an inciting reason for her low self-esteem and low self-confidence which she feels are very relevant to her psychiatric problems. She identifies several suicide attempts during these teenage years as well as inpatient hospitalizations which followed those attempts. She acknowledges trying to hang herself as well as attempting to overdose. Patient states that more recently the stress of school has been overwhelming to her. She also attributes this recent hospitalization to the increasing stress of her fibromyalgia diagnosis of the pain that it causes her. She is agreeable to treatment with medications to target her anxiety and depression. She is not currently enrolled in any therapy services at this time. Manic and psychotic symptoms denied. Physical Exam Mental Examination See admission H&P and DOD summary. Vital Signs (Past 24 Hours) Last Vital Signs Temp 36.7 C 12/03/20 06:46 Pulse 98 H 12/03/20 06:46 Resp 18 12/03/20 06:46 BP 115/66 12/03/20 06:46 Pulse Ox 98 11/28/20 10:21 Principal Diagnosis depressive disorder Psychiatric Data See daily stay summary. In short, safety was maintained and the patient was cooperative with care. Medication changes included slight decrease in Valium per Dr. Bernard and trial of Prozac and they tolerated this well. A family session was held with both father and a local support and safety plan was completed prior to discharge. Re: fibromyalgia and other medical conditions, the patient plans to continue to follow with her providers near her home and utilize [facility] for acute visits. She is leaving on a weekend and prefers to make her own appointments when office reopens. She did have complaints sleep attacks at times, it is not clear whether this is fatigue due to fibromyalgia or could be related to another sleep disorder like primary hypersomnia or even narcolepsy. She agrees not to drive if feeling fatigued or in any way impaired from Valium. She does not combine with ETOH. Defer further work up to discretion of outpatient medical providers. Confirmed she has own supply of Lyrica and Valium at home. She reports having no refills on control and needs to continue pill pack tomorrow so will send 1 pill pack to pharmacy, discussed where to start dosing to avoid breakthrough bleeding. Patient was given just 1 week supply of Prozac 10 mg as likely dose may be increased soon as outpatient. She declined titration to normal starting dose of 20 mg here as typically "sensitive" to medications. Day of Discharge Assessment Today the patient voices readiness for discharge. They note improvement in mood and deny thoughts to harm self or others. Thoughts remain organized and they are improved from admission. There is no evidence of psychosis. They agree to take mediations as prescribed and keep follow-up appointments. They are stable for discharge to outpatient level of care and have an appointment with their psychiatrist tomorrow and an intake for therapy services later this week. Transition of Care Transition Of Care Record: was reviewed with the patient Advance Directives Advance Directives Information Provided: Yes Advance Directives: No Mental Health Advance Directive: No Advance Directives on File: No Living Will: No Power of Technology Sales Representative: No Advance Directives Reason:: Declines as Mental Health Visit. Risk Factors Assessment : Yes Do You Have Access To A Gun?: No Health Problems: Yes Mental Health Diagnoses: Yes Substance Use Disorders: No Previous Attempt: Yes Previous Psychiatric Hospitalization: Yes Protective Factors Assessment Employed: Yes ([employer]/last day tomorrow) Stable Relationships: Yes Supportive Family: Yes Good Rapport with Provider: Yes Tobacco Cessation at Discharge Tobacco Cessation Medication Prescribed at Discharge: Not Applicable/Non-Smoker Total Time Total Time Spent: Greater Than 30 Minutes Total Time Includes: Examination of the patient, Discharge Planning and Medication Reconciliation Discharge Data Lab Results 11/28/20 11/28/20 11/28/20 10:03 10:03 10:03 WBC RBC Hgb Hct MCV MCH MCHC RDW Std Deviation RDW Coeff of Charli Plt Count MPV Immature Gran % (Auto) Neut % (Auto) Lymph % (Auto) Dickens % (Auto) Eos % (Auto) Baso % (Auto) Neut # (Auto) Lymph # (Auto) Dickens # (Auto) Eos # (Auto) Baso # (Auto) Immature Gran # (Auto) Sodium Potassium Chloride Carbon Dioxide Anion Gap BUN Creatinine Est Cr Clr Drug Dosing Est GFR ( Amer) Est GFR (Non-Af Amer) BUN/Creatinine Ratio Glucose Calcium Total Bilirubin AST ALT Alkaline Phosphatase Total Protein Albumin Globulin Albumin/Globulin Ratio TSH HCG, Qual Urine Color Dark Yellow Urine Appearance Clear Urine pH 5.5 Ur Specific Butler 1.030 Urine Protein Negative Urine Glucose (UA) Negative Urine Ketones Trace H Urine Blood 1+ H Urine Nitrite Positive A Urine Bilirubin Negative Urine Urobilinogen Negative Ur Leukocyte Esterase Trace H Urine WBC (Auto) 10-30 H Urine RBC (Auto) 0-4 U Hyaline Cast (Auto) 5-10 H U Epithel Cells (Auto) 20-30 H Urine Bacteria (Auto) 4+ H Salicylates Urine Opiates Screen Neg Ur Methadone, Qual Neg Acetaminophen Urine Barbiturates Neg Ur Phencyclidine (PCP) Neg U Amphetamin/Meth Scrn Neg MDMA (Ecstasy) Screen Neg U OH-Alprazolam Confrm NEGATIVE U Benzodiazepines Scrn Pos H 7-Amino Clonazepam NEGATIVE Ur Nordiazepam Confirm 387 H U OH-ethylflurazepam NEGATIVE U Lorazepam Cnf GC/MS NEGATIVE U Oxazepam Confm GC/MS 612 H Ur Temazepam Confirm 932 H U OH-Triazolam Confirm NEGATIVE U OH-Midazolam Confirm NEGATIVE Ur Cocaine Metabolite Neg U Marijuana (THC) Screen Neg Drug Screen Comment SEE NOTE Ethyl Alcohol mg/dL COVID-19 Eval Order SARS-CoV-2 (PCR) 11/28/20 11/28/20 11/28/20 10:44 10:44 10:44 WBC 3.55 L RBC 4.79 Hgb 14.8 Hct 44.8 MCV 93.5 MCH 30.9 MCHC 33.0 RDW Std Deviation 47.0 H RDW Coeff of Charli 13.7 Plt Count 208 MPV 10.4 Immature Gran % (Auto) 0.0 Neut % (Auto) 49.0 Lymph % (Auto) 39.2 Dickens % (Auto) 10.1 Eos % (Auto) 1.4 Baso % (Auto) 0.3 Neut # (Auto) 1.74 Lymph # (Auto) 1.39 Dickens # (Auto) 0.36 Eos # (Auto) 0.05 Baso # (Auto) 0.01 Immature Gran # (Auto) 0.00 Sodium 137 Potassium 3.7 Chloride 109 H Carbon Dioxide 26 Anion Gap 2.0 L BUN 12 Creatinine 0.83 Est Cr Clr Drug Dosing 82.4 Est GFR ( Amer) 116.8 Est GFR (Non-Af Amer) 100.8 BUN/Creatinine Ratio 14.9 Glucose 74 Calcium 9.0 Total Bilirubin 1.0 AST 19 ALT 22 Alkaline Phosphatase 69 Total Protein 7.7 Albumin 3.9 Globulin 3.8 Albumin/Globulin Ratio 1.0 TSH 1.010 HCG, Qual Negative Urine Color Urine Appearance Urine pH Ur Specific Butler Urine Protein Urine Glucose (UA) Urine Ketones Urine Blood Urine Nitrite Urine Bilirubin Urine Urobilinogen Ur Leukocyte Esterase Urine WBC (Auto) Urine RBC (Auto) U Hyaline Cast (Auto) U Epithel Cells (Auto) Urine Bacteria (Auto) Salicylates Urine Opiates Screen Ur Methadone, Qual Acetaminophen Urine Barbiturates Ur Phencyclidine (PCP) U Amphetamin/Meth Scrn MDMA (Ecstasy) Screen U OH-Alprazolam Confrm U Benzodiazepines Scrn 7-Amino Clonazepam Ur Nordiazepam Confirm U OH-ethylflurazepam U Lorazepam Cnf GC/MS U Oxazepam Confm GC/MS Ur Temazepam Confirm U OH-Triazolam Confirm U OH-Midazolam Confirm Ur Cocaine Metabolite U Marijuana (THC) Screen Drug Screen Comment Ethyl Alcohol mg/dL COVID-19 Eval Order SARS-CoV-2 (PCR) 11/28/20 11/28/20 11/28/20 10:44 10:44 Unknown WBC RBC Hgb Hct MCV MCH MCHC RDW Std Deviation RDW Coeff of Charli Plt Count MPV Immature Gran % (Auto) Neut % (Auto) Lymph % (Auto) Dickens % (Auto) Eos % (Auto) Baso % (Auto) Neut # (Auto) Lymph # (Auto) Dickens # (Auto) Eos # (Auto) Baso # (Auto) Immature Gran # (Auto) Sodium Potassium Chloride Carbon Dioxide Anion Gap BUN Creatinine Est Cr Clr Drug Dosing Est GFR ( Amer) Est GFR (Non-Af Amer) BUN/Creatinine Ratio Glucose Calcium Total Bilirubin AST ALT Alkaline Phosphatase Total Protein Albumin Globulin Albumin/Globulin Ratio TSH HCG, Qual Urine Color Urine Appearance Urine pH Ur Specific Butler Urine Protein Urine Glucose (UA) Urine Ketones Urine Blood Urine Nitrite Urine Bilirubin Urine Urobilinogen Ur Leukocyte Esterase Urine WBC (Auto) Urine RBC (Auto) U Hyaline Cast (Auto) U Epithel Cells (Auto) Urine Bacteria (Auto) Salicylates < 1.7 L Urine Opiates Screen Ur Methadone, Qual Acetaminophen < 2 L Urine Barbiturates Ur Phencyclidine (PCP) U Amphetamin/Meth Scrn MDMA (Ecstasy) Screen U OH-Alprazolam Confrm U Benzodiazepines Scrn 7-Amino Clonazepam Ur Nordiazepam Confirm U OH-ethylflurazepam U Lorazepam Cnf GC/MS U Oxazepam Confm GC/MS Ur Temazepam Confirm U OH-Triazolam Confirm U OH-Midazolam Confirm Ur Cocaine Metabolite U Marijuana (THC) Screen Drug Screen Comment Ethyl Alcohol mg/dL < 3.0 COVID-19 Eval Order Covid19 at [facility] SARS-CoV-2 (PCR) 11/28/20 Unknown WBC RBC Hgb Hct MCV MCH MCHC RDW Std Deviation RDW Coeff of Charli Plt Count MPV Immature Gran % (Auto) Neut % (Auto) Lymph % (Auto) Dickens % (Auto) Eos % (Auto) Baso % (Auto) Neut # (Auto) Lymph # (Auto) Dickens # (Auto) Eos # (Auto) Baso # (Auto) Immature Gran # (Auto) Sodium Potassium Chloride Carbon Dioxide Anion Gap BUN Creatinine Est Cr Clr Drug Dosing Est GFR ( Amer) Est GFR (Non-Af Amer) BUN/Creatinine Ratio Glucose Calcium Total Bilirubin AST ALT Alkaline Phosphatase Total Protein Albumin Globulin Albumin/Globulin Ratio TSH HCG, Qual Urine Color Urine Appearance Urine pH Ur Specific Butler Urine Protein Urine Glucose (UA) Urine Ketones Urine Blood Urine Nitrite Urine Bilirubin Urine Urobilinogen Ur Leukocyte Esterase Urine WBC (Auto) Urine RBC (Auto) U Hyaline Cast (Auto) U Epithel Cells (Auto) Urine Bacteria (Auto) Salicylates Urine Opiates Screen Ur Methadone, Qual Acetaminophen Urine Barbiturates Ur Phencyclidine (PCP) U Amphetamin/Meth Scrn MDMA (Ecstasy) Screen U OH-Alprazolam Confrm U Benzodiazepines Scrn 7-Amino Clonazepam Ur Nordiazepam Confirm U OH-ethylflurazepam U Lorazepam Cnf GC/MS U Oxazepam Confm GC/MS Ur Temazepam Confirm U OH-Triazolam Confirm U OH-Midazolam Confirm Ur Cocaine Metabolite U Marijuana (THC) Screen Drug Screen Comment Ethyl Alcohol mg/dL COVID-19 Eval Order SARS-CoV-2 (PCR) NEGATIVE Hospital Course (1) Depression with suicidal ideation: 12/02/20--continue current meds and tx plan. Reviewed care by Dr. Bernard (italics) The patient was admitted to the [facility] ([facility] unit) on every 15 minute checks (behavioral with suicide precautions for safety. The patient will participate in group, recreational, and milieu therapies and will be offered additional individual and family sessions as clinically appropriate. 12/01/2020we will continue with the current regimen for now. Patient making incremental progress. 11/30/2020will increase Prozac to 10 mg p.o. every morning. We will continue Lyrica at the current dose. Will decrease Valium dose to 3 mg p.o. nightly 11/29/2020ontinue Prozac 5 mg p.o. every morning. Will likely increase to 10 mg in the next coming days. Continue Lyrica and Valium. 11/28/2020we will start Prozac 5 mg p.o. every morning starting tomorrow morning. In addition we will resume patient's Valium 4 mg p.o. nightly, Lyrica 50 mg p.o. twice daily Mental Health & Subst Abuse Tx Psychiatrist Name of Psychiatrist: JEREMÍAS Paris Psychiatrist's Date of Appointment with Psychiatrist: 12/04/20 Time of Appointment with Psychiatrist: 1:30p.m Psychiatric Appointment Comment: [address] [place] [id number] Therapist Name of Therapist: [facility] The[facility]'s Date of Therapist Appointment: 12/07/20 Time of Therapist Appointment: 11a.m. Therapy Appointment Comment: Must complete forms online 48 hours prior to appointment. Stock Blender Name of Stock Blender: None Post Discharge Appointments Primary Care Physician Name Of Family Doctor: Rosi Valdovinos NP Primary Care Provider Appointment Comment: Follow up as needed. Smoking Cessation Counseling Tobacco Cessation Medication Prescribed at Discharge: Not Applicable/Non-Smoker Contact Information Discharge Discharge Address: [address] [place] [id number] Discharge Plan Discharge Items Patient Disposition: Home - Self-Care Reason For Visit: MDD Discharge Diagnosis: depression Activity: Resume your previous activity Non-emergency contact: Primary Care Provider, Psychiatrist and Therapist Call non-emergency contact if: you have any medication questions and your symptoms worsen Follow-up/Referrals: Rosi Valdovinos CRNP [Primary Care Provider] - Diet: Regular Addtl Attending Provider Instructions: SPECIAL CARE INSTRUCTIONS: 1. Follow through with your scheduled aftercare appointments. If unable to keep an appointment, please call to reschedule. 2. Take your medication only as prescribed. Medication should not be changed or stopped without the approval of your doctor. In the event of worsening symptoms or concerns about side effects, contact your doctor immediately. 3. Utilize new healthy coping skills, anger management skills, and stress management skills learned during your hospitalization. Journal feelings and process them with a support person. Identify stressors or situations that may result in relapse, deterioration or inappropriate behaviors and develop a plan to deal with those issues. 4. If your coping skills are ineffective and you are in crisis, contact your outpatient providers for direction. If unable to reach your providers, please call the [facility] CRISIS LINE AT , go to the [facility] walk-in center at [address], [place], or go to the closest Emergency Room. 5. Avoid alcohol and un-prescribed drugs. 6. You have been provided with the Mental Health Advance Directives Pamphlet for your review. 7. Your condition is stable for discharge to outpatient level of care, but recovery is an ongoing process. Ifthoughts to harm yourself or others return, follow the safety plan developed during your stay. Planning for a safe return home includes securing weapons. Our treatment team recommends weaponsbe removed from the home until your outpatient provider reassesses your progress. In rare cases where the items themselvescannot be removed, guns and ammunitionshould be secured separatelyand keys stored by a reliable personoutside of the home. If you were admitted on an involuntary commitment, the police or other legal authorities may be involved in this process. AFTERCARE APPOINTMENTS: * Please call your insurance company prior to your scheduled appointment to confirm your aftercare providers are covered. Take your insurance information to your appointments. WHO TO CALL AND WHEN: Medical Emergencies: For questions or emergencies related to your hospital stay, please contact the Inpatient Behavioral Health Unit at [phone]. A ranch hand supervisor is on-call 14/10 for the Behavioral Health Unit for emergencies At any time you feel your situation is an emergency, you may also call 911 immediately. Pending Studies at Discharge: No Stand-Alone Forms: [facility], Smoking Cessation Medications and DC Order Prescriptions: New nitrofurantoin monohyd/m-cryst 100 mg Capsule 100 mg PO BID 1 Days Qty: 2 RF: 0 diazepam 2 mg Tablet 3 mg PO HS 1 Days Qty: 1 RF: 0 fluoxetine 10 mg Capsule 10 mg PO QAM 7 Days Qty: 7 RF: 0 Continued pregabalin [Lyrica] 50 mg capsule 50 mg PO BID RF: 0 norethindrone-e.estradiol-iron [Junel FE 04/12 (28)] 1 mg-20 mcg (21)/75 mg (7) Tablet 1 tab PO DAILY 28 Days Qty: 1 RF: 0 Discontinued diazepam [Valium] 2 mg Tablet 4 mg PO HS RF: 0 Discharge Orders: Discharge Order (Routine); Ordered 12/03/20 Ordered By: Elissa Mendoza Admission Data Admit Date/Time: 11/28/20 12:59 Attending Provider: Elissa Mendoza Admit Provider: Tera Bernard Primary Care Provider: Rosi Valdovinos Coding Level of Care Code 08918 D/C day mgmt > 30 min Diagnoses Depression with suicidal ideation F32.9; R45.851
== END 2020-12-03 11:53 | disposition home or self-care (01) | DRG 881 ==
LOC: ED 09:35 → 3S 12:59 → SUATTDRO 12:59 → 3S 13:45